=== PATIENT | female | born 1945 | race Caucasian/White ===

== ENCOUNTER 2018-01-12 18:23 | Emergency (ER) | payer MEDICARE ==
[2018-01-12 18:37] VITALS: O2SAT 96
--- NOTE | 2018-01-12 19:38 | ERPHSYRPT ---
- History of Present Illness Time Seen by Provider: 01/12/18 19:34 Source: patient Exam Limitations: no limitations Patient Subjective Stated Complaint: pt reports tripping and falling this morning-reports pain to right wrist-reports pain and swelling-denies loc-denies hitting head Triage Nursing Assessment: pt pink warm and [id number] noted to right wrist with radial pulse present and regular-cap refill 3 seconds in pointer finger-superficial abrasions noted to left elbow with no bleeding Physician History: pt reports tripping and falling this morning-reports pain to right wrist- reports pain and swelling, No loss of consciousness Occurred: this morning Method of Injury: fell Quality: intermittent Extremities Pain Location: wrist: right, hand: right Modifying Factors: Improves With: nothing Associated Symptoms: none Body Map: 1 - pain, tenderness Allergies/Adverse Reactions: No Known Drug Allergies Allergy (Verified 01/12/18 18:37) Home Medications: Dexlansoprazole [Dexilant] 60 mg PO DAILY 05/20/12 [History] Albuterol Sulfate [Proair Respiclick] 90 mcg IH DAILY 03/20/15 [History] Amlodipine Besylate 5 mg [Norvasc 5 mg] 5 mg PO DAILY 03/20/15 [History] Famotidine [Pepcid] 10 mg PO DAILY 03/20/15 [History] Dulaglutide [Trulicity] 0.75 mg PO DAILY 01/12/18 [History] Metoprolol Succinate [Metoprolol Succinate] 50 mg PO DAILY 01/12/18 [History] Potassium Chloride [Potassium Chloride] 10 meq PO DAILY 01/12/18 [History] Hx Tetanus, Diphtheria Vaccination/Date Given: Yes Hx Influenza Vaccination/Date Given: Yes Hx Pneumococcal Vaccination/Date Given: No Immunizations Up to Date: Yes - Review of Systems Constitutional: No Symptoms Eyes: No Symptoms Ears, Nose, & Throat: No Symptoms Respiratory: No Symptoms Cardiac: No Symptoms Abdominal/Gastrointestinal: No Symptoms Musculoskeletal: Fall, Injury (right hand), Joint Pain, Joint Swelling - Past Medical History Pertinent Past Medical History: Yes Neurological History: No Pertinent History ENT History: No Pertinent History Cardiac History: High Cholesterol, Hypertension Respiratory History: COPD Endocrine Medical History: Diabetes Type II Musculoskeletal History: Rheumatoid Arthritis GI Medical History: Diverticulitis, GERD, Hernia, Irritable Bowel History: No Pertinent History Psycho-Social History: Anxiety, Depression Female Reproductive Disorders: No Pertinent History - Past Surgical History Past Surgical History: Yes Neuro Surgical History: No Pertinent History Cardiac: No Pertinent History Respiratory: No Pertinent History Gastrointestinal: Cholecystectomy Genitourinary: No Pertinent History Musculoskeletal: No Pertinent History Female Surgical History: No Pertinent History, Tubal Ligation Other Surgical History: TONSIL. EGD 5 YEARS AGO. COLONOSCOPY - Social History Smoking Status: Former smoker How long have you smoked: 33 YEARS Exposure to second hand smoke: No Alcohol Use: None Drug Use: none Patient Lives Alone: No Significant Family History: no pertinent family hx - Female History Hx Now: No - Nursing Vital Signs Nursing Vital Signs: Initial Vital Signs Temperature 98.6 F 01/12/18 18:32 Pulse Rate 82 01/12/18 18:32 Respiratory Rate 18 01/12/18 18:32 Blood Pressure 150/100 01/12/18 18:32 O2 Sat by Pulse Oximetry 96 01/12/18 18:32 Pain Scale Pain Intensity 6 - Physical Exam General Appearance: no apparent distress Wrist Exam: normal ROM, bone tenderness, pain, soft tissue tenderness, No deformity Hand Exam: soft tissue tenderness SpO2: 96 Oxygen Delivery: Room Air - Radiology Exams Hand X-ray Interpretation: Reviewed by me, Negative, No Fracture, No Subluxation Ordered Tests: Active Orders 24 hr Category Date Time Status HAND (MINIMUM 3 VIEWS) Stat Exams 01/12/18 18:47 Taken WRIST (MIN 3 VIEWS) Stat Exams 01/12/18 18:47 Taken - Progress Progress: improved, pain not gone completely Counseled pt/family regarding: diagnosis, need for follow-up, rad results - Departure Time of Disposition: 19:37 Departure Disposition: Home Clinical Impression: Sprain of hand, right Qualifiers: Encounter type: initial encounter Qualified Code(s): S63.91XA - Sprain of unspecified part of right wrist and hand, initial encounter Condition: Stable Critical Care Time: No Referrals: MISBAH AUSTIN [Primary Care Provider] - Instructions: Preventing Falls, Wrist Sprain (DC) Additional Instructions: SPRAINS/STRAINS/CONTUSIONS 1. Rest the affected area as much as possible for the next few days. 2. Apply ice to the affected area for 20-30 minutes at a time, several times a day. 3. If you receive an elastic wrap, wear it only while awake for comfort and support. Re-wrap the elastic wrap if it feels too tight or too loose. 4. If swelling is present, elevate the affected part above the level of the heart for at least 2 to 3 days. 5. Use splints, slings, or crutches as instructed. 6. Watch for severe swelling, coldness, numbness, and discoloration of the fingers and toes. See your family physician or return to the emergency department if any of these are noted. JACKIE PEREYRA was seen on 01/12/18 n the Emergency Room. At that time you were treated for an emergent condition, during your visit Laboratory, Radiology and/ or other procedures may have been ordered. It is very important that you follow- up with your Primary Care Physician MISBAH AUSTIN within the next 24-48 hours to review your Emergency Room visit and the final results of testing that was ordered. Some test results such as Urine Cultures, Blood Cultures, and other cultures if ordered will not be finalized for 24-48 hours. If you do not have a Primary Care Provider please call the medical records department at [phone] to obtain a copy of your results or you may sign into our patient portal to obtain these results by visiting us @ [email or web address] and completing the following steps: 1. Click on the Patient Portal link 2. Click the Patient Self Enrollment Link to complete the enrollment form and entering your 3. Once the enrollment form is completed you will receive an email with a temporary ID and password at the email address you provided. 4. Next choose a user name and password. Your user name must be at least 4 characters long and your password must be at least 4 characters long. 5. Choose a security question from the list and provide your answer to the question. If you already have signed into the Health Portal you may access your Health Care Information 26/03 by the following steps: 1. Login to our website @ [email or web address] 2. Enter your original user name and password. FAQS The [facility] Portal is an online tool that contains your Lab Results, Radiology Reports, Visit History, Discharge Instructions and Health Summary Lab and Radiology Results will not be available for 72 hours on the portal. The Portal is a secure site, passwords are encryted and URLs are re-written so they cannot be copied and pasted. You and authorized family members are the only ones who can access your Portal. Also there is a timeout feature that protects your information if you leave the Portal page open. If you have technical difficulty please use the Contact Us link on the page this will allow you to submit any questions you have regarding the Portal or you may contact the Medical Record Department at [phone].
[2018-01-12 19:40] VITALS: BP 151/102; PULSE 80
--- NOTE | 2018-01-13 07:40 | XRAY ---
Indication: Pain following fall. Comparison: March 20, 2015. 3 views of the right wrist unchanged again demonstrating mild osteopenia and radiocarpal joint space narrowing. No new/acute findings.
--- NOTE | 2018-01-13 07:44 | XRAY ---
Indication: Pain following fall. Comparison: None 3 views of the right hand demonstrates mild osteopenia, mild degenerative changes of all IP joints, and radiocarpal joint space narrowing. No other bony, articular, or soft tissue abnormalities.
== END 2018-01-12 19:45 | disposition home or self-care (01) ==
LOC: ED 18:23
DX: S63.91XA Sprain of unspecified part of right wrist and hand, initial encounter (principal); M25.531 Pain in right wrist; W01.0XXA Fall on same level from slipping, tripping and stumbling without subsequent striking against object, initial encounter; Z79.899 Other long term (current) drug therapy
CPT/HCPCS: 73110; 73130; 99283; L3908

== ENCOUNTER 2018-03-01 05:56 | Day surgery (SDC) | payer MEDICARE ==
[2018-03-01] MEDS ORDERED: DIPRIVAN 200 MG/20 ML IV ONE (05:57)
[2018-03-01] MEDS ORDERED: Lactated Ringers 1,000 ML IV SCH (06:00)
--- NOTE | 2018-03-01 08:14 | OP ---
SURGERY DATE/TIME: 03/01/2018 0747 PREOPERATIVE DIAGNOSIS: Chronic nausea. POSTOPERATIVE DIAGNOSES: 1) Delayed gastric emptying. 2) Gastric polyps. PROCEDURE: Esophagogastroduodenoscopy. SURGEON: Dr. Salcido. ANESTHESIA: Medications were given by the anesthesia department. BRIEF HISTORY: The patient is a 72 year old white female who has been reporting chronic nausea. She is known to be diabetic and we were concerned for delayed gastric emptying. The patient was appraised of the risks of the procedure including the risk of perforation, phlebitis, untoward reaction to medication, bleeding and missed lesions. The patient verbalized her understanding and desired to have the procedure performed. DESCRIPTION OF PROCEDURE: The patient was given the medications by the anesthesia department. She had continuous pulse oximetry, ECG monitoring, intermittent blood pressure monitoring and tidal CO2 monitoring during the examination. She was placed in the left lateral decubitus position. A bite block was placed and the flexible Olympus gastroscope was used to intubate the oropharynx. A view of the larynx was obtained and was normal. The scope was easily introduced in the esophagus which was normal throughout its length. The stomach was entered where normal gastric rugal folds were seen. We noted that there was indeed delayed gastric emptying with a fair amount of food stuff still up in the stomach. There was also noted to be several gastric gland polyps including one broad based and fairly large one. The scope was passed along the greater curvature of the stomach to the antrum. The pylorus was encountered and intubated. The duodenum inspected and found to be normal. The scope is withdrawn towards the stomach. Again, a retroflex view was obtained of the lesser curvature, fundus and cardia regions of the stomach and again was noted a fairly large polyp. We inspected but did not biopsy this as it appeared to be friable. We were concerned for stirring up some bleeding that would be difficult to control. We therefore removed the scope from the patient who tolerated the procedure well and was sent back to the hospital ca in good condition. The plan is for the patient to have surgical consultation with possible removal and biopsy of the polyps in the stomach where it could be controlled by a surgeon if the patient should have significant bleeding.
[2018-03-01 08:52] VITALS: BP 152/78; PULSE 72; O2SAT 93
== END 2018-03-01 09:04 | disposition home or self-care (01) ==
LOC: SDC 05:56
PROVIDERS: ATTEND Family Medicine
DX: K30 Functional dyspepsia (principal); K31.7 Polyp of stomach and duodenum; E11.9 Type 2 diabetes mellitus without complications; I10 Essential (primary) hypertension; E78.5 Hyperlipidemia, unspecified
CPT/HCPCS: 82962; 99100; J2704

== ENCOUNTER 2018-04-08 08:04 | Day surgery (SDC) | payer MEDICARE ==
[~2018-04-08 08:04] MED LIST: Lactated Ringers 1,000 ML IV SCH
[2018-04-08] MEDS ORDERED: DIPRIVAN 200 MG/20 ML IV ONE (08:05)
[2018-04-08] MEDS ORDERED: Versed 2 MG/2 ML Injection IV ONE (08:05)
--- NOTE | 2018-04-08 08:33 | HP ---
DATE OF SURGERY: 04/08/2018 HISTORY OF PRESENT ILLNESS: The patient is a 72 year-old recently underwent endoscopy by Dr. Salcido and noted to have a large gastric polyp. He was referred for surgical evaluation. PAST MEDICAL HISTORY: Diabetes neuropathy, arthritis, hypertension, acid reflux. PAST SURGICAL HISTORY: Cholecystectomy, appendectomy, tubal ligation, upper endoscopy. MEDICATIONS: Actemra, amlodipine, Dexilant, potassium chloride, gabapentin, Januvia, metoclopramide, Zofran, rosuvastatin, vitamin D, Toprol, triamterene, Trulicity. ALLERGIES: NKDA. FAMILY HISTORY: Heart disease. SOCIAL HISTORY: No alcohol abuse. REVIEW OF SYSTEMS: Twelve systems reviewed per admission assessment. No chest pain or palpitations other systems negative or noncontributory as above and per preadmission questionnaire. PHYSICAL EXAMINATION: GENERAL: No acute distress. HEENT: Sclerae nonicteric. NECK: No JVD. CHEST: Equal excursion, nonlabored breathing. CVS: Regular rate and rhythm. ABDOMEN: Soft. No peritoneal signs. EXTREMITIES: No significant edema. NEURO: Alert, oriented, moving extremities symmetrically. No gross motor deficits noted. IMPRESSION: Large polyp on recent endoscopy by Dr. Salcido. I feel she will benefit from follow up upper endoscopy, possible polypectomy. Risks and benefits explained in detail including but not limited to bleeding or infection, risk of aspiration, risk of inability to remove the polyp possibly requiring biopsy and possible later open or laparoscopic surgical procedure, general of anesthesia, deep venous thrombosis, pulmonary embolism, pneumonia, perioperative risk of aches, pains, bloating particularly given history of diabetes and possible gastroparesis. Risk of anesthesia or sedation. Will proceed with EGD possible biopsy, possible polypectomy when OR time available.
[2018-04-08] MEDS ORDERED: Lactated Ringers 1,000 ML IV ONE (08:35)
[2018-04-08 11:38] VITALS: PULSE 68
[2018-04-08 11:52] VITALS: BP 139/80; O2SAT 93
--- NOTE | 2018-04-09 07:54 | OP ---
SURGERY DATE/TIME: 04/08/2018 1038 PREOPERATIVE DIAGNOSIS: History of large gastric polyp in need of evaluation. POSTOPERATIVE DIAGNOSES: 1) History of large gastric polyp in need of evaluation. 2) Gastritis. PROCEDURES: 1) EGD with hot snare polypectomy large gastric polyp x2. 2) Hemoclip placement for hemostasis at largest polyp site. 3) Cold biopsy of the antrum to evaluate for Helicobacter pylori. SURGEON: Dr. Eddie Hansen. ANESTHESIA: MAC. ESTIMATED BLOOD LOSS: Minimal. INDICATIONS: As noted above. Risks and benefits explained in detail and not limited to and consent obtained. DESCRIPTION OF PROCEDURE AND FINDINGS: The patient is taken to the operating room. MAC anesthesia introduced. After official time out and no disagreement with planned procedure, a bite block positioned. Video gastroscope easily passed down the esophagus through the patent pylorus to the junction of the second and third portion of the duodenum. On withdrawal of the scope she had some gastritis. She had not been previously biopsied for Helicobacter pylori so cold biopsy of the antrum to evaluate for Helicobacter pylori. Good hemostasis noted. On retroflex there is a large polyp with a little bit of a stalk on the proximal stomach. It was felt this was the one in question confirmed by the OR staff from Dr. Salcido's previous procedure. It was able to be snared with hot snare, brief bursts of cautery. There was some ooze at the base. It was felt the most expeditious way to control this is with a Hemoclip. Initial Hemoclip was not fired correctly so it was grasped and retrieved and passed off. A new Hemoclip was used and at this time fired at the base. The staff was able to fire it correctly this time with good application. It had good hemostasis. There was another large polyp nearby that was also removed with hot snare polypectomy with brief bursts of cautery. It appeared to have adequate hemostasis. It was able to be suctioned free. The largest gastric polyp was able to be suctioned with the tip of the scope and carefully pulled up to the esophagus and able to be passed off. The scope was placed back down in the area. Good hemostasis was noted in both with antrum biopsies as well as the polypectomy site x2. The patient had other very small benign appearing fundal gland polyps also in the stomach but were felt not to need intervention at this time. Good hemostasis is noted. The two larger polypectomy sites the Hemoclip was in position. It was felt that no further intervention was necessary. The scope was withdrawn. Findings discussed with the family out in the waiting area.
== END 2018-04-08 11:55 | disposition home or self-care (01) ==
LOC: SDC 08:04
PROVIDERS: ATTEND Surgery
DX: K31.7 Polyp of stomach and duodenum (principal); K29.70 Gastritis, unspecified, without bleeding; I10 Essential (primary) hypertension; K21.9 Gastro-esophageal reflux disease without esophagitis; E11.40 Type 2 diabetes mellitus with diabetic neuropathy, unspecified
CPT/HCPCS: 88305; 94250; 99100; J2250; J2704

== ENCOUNTER 2018-05-22 13:09 | Observation (INO) | payer MEDICARE ==
[2018-05-22] MEDS ORDERED: Zofran 4 MG/2 ML VIAL IV ONE (13:36)
[2018-05-22] MEDS ORDERED: Sodium Chloride 0.9% 1000 ML 1,000 ML IV SCH (13:45)
[2018-05-22] MEDS ORDERED: Sodium Chloride 0.9% 500 ML 500 ML IV ONE ×3 (13:46→17:49)
[2018-05-22 13:53] LABS: BASOPHIL % 0.7 % (0.0-0.4); Basophil (Absolute #) 0.03 (0-0.4); Eosinophil % 0.7 % (0.00-5.0); Eosinophil (Absolute #) 0.03 (0-0.5); Granulocyte Absolute (ANC) 3.55 (1.4-6.9); Granulocytes % 78.8 % (36.0-66.0); Hemoglobin 16.1 gm/dl (12.0-16.0); Lymphocyte (Absolute #) 0.59 (1.0-4.6); Lymphocytes % 13.1 % (24.0-44.0); Mean Cell Volume 87.6 fl (78-100); Monocytes % 6.7 % (0.0-12.0); Platelet Count 139 K/mm3 (150-450); Red Blood Count 5.25 M/mm3 (4.1-5.4); Red Cell Distribution Width 13.2 % (11.5-14.0); White Blood Count 4.5 K/mm3 (4.0-10.5)
[2018-05-22] MEDS ORDERED: Zofran 4 MG/2 ML VIAL ONE (13:59)
[2018-05-22 14:09] LABS: Mean Corpuscular Hemoglobin 30.6 pg (26-32)
[2018-05-22 14:16] LABS: ALBUMIN 4.3 g/dL (3.5-5.0); ANION GAP 23.2 MEQ/L (5-15); BILIRUBIN,TOTAL 1.2 mg/dL (0.2-1.3); Calcium 9.4 mg/dL (8.4-10.2); Creatinine 1 1.4 mg/dL (0.52-1.04); Potassium 3.8 mmol/L (3.5-5.1); Total Protein 6.9 g/dL (6.3-8.2)
--- NOTE | 2018-05-22 14:17 | XRAY ---
Indication: Fever and cough. Comparison: April 29, 2014. Portable chest again demonstrates normal heart and lungs with new left-sided Port-A-Cath. Bony thorax intact again with mild osteopenia and degenerative changes. Impression: Nonacute chest with chronic features.
--- NOTE | 2018-05-22 14:25 | ERPHSYRPT ---
- History of Present Illness Time Seen by Provider: 05/22/18 13:16 Source: patient, EMS Exam Limitations: no limitations Patient Subjective Stated Complaint: pt here for nausea that is chronic, weakness,shakiness, since starting meds. pt states her bs have been running high , fbs 348 per ems Triage Nursing Assessment: pt alert, resp easy, skin w/d/p. abd soft Physician History: patient recently saw LMD and found to have a UTI and high BS with Glu in urine; she was started on Insulin and Reglan; took reglan last pm and insulin today; didn't start on ATBs because is due for an infusion tomorrow for arthritis and will not take ATBs because will interfere with infusion; fever time 3 days; slight dry cough; no CP or SOB; no travel or exposures; has freq and urgency; Nausea but no emesis; not feeling well after insulin so came in; BS finger high at 365; thirsty Timing/Duration: today, gradual onset Severity: moderate Modifying Factors: Improves With: medication (new) Associated Symptoms: nausea, cough (dry), chills, fever (to 100 at home) Allergies/Adverse Reactions: No Known Drug Allergies Allergy (Verified 05/22/18 13:19) Home Medications: Dexlansoprazole [Dexilant] 60 mg PO DAILY 05/20/12 [History] Albuterol Sulfate [Proair Respiclick] 90 mcg IH DAILY 03/20/15 [History] Amlodipine Besylate 5 mg [Norvasc 5 mg] 5 mg PO DAILY 03/20/15 [History] Dulaglutide [Trulicity] 1.5 mg PO WEEKLY 01/12/18 [History] Metoprolol Succinate 50 mg PO DAILY 01/12/18 [History] Potassium Chloride 10 meq PO DAILY 01/12/18 [History] Cholecalciferol (Vitamin D3) [Vitamin D] 5,000 unit PO DAILY 02/28/18 [ History] Gabapentin [Neurontin] 300 mg PO TID 02/28/18 [History] Ondansetron ODT 4 MG [Zofran Odt 4 mg] 4 mg PO Q6H PRN PRN 02/28/18 [ History] Rosuvastatin Calcium 10 mg PO DAILY 02/28/18 [History] Sitagliptin Phosphate [Januvia] 25 mg PO DAILY 02/28/18 [History] Tocilizumab 200 mg/10 ml [Actemra] 200 mg IV CLARIFY 02/28/18 [History] Triamterene/Hydrochlorothiazid [Triamterene-Hctz 37.5-25 mg Cp] 1 each PO DAILY 02/28/18 [History] Metoclopramide HCl 10 mg [Reglan 10 MG] 1 - 2 tab PO DAILY 04/01/18 [ History] Hx Tetanus, Diphtheria Vaccination/Date Given: No Hx Influenza Vaccination/Date Given: No Hx Pneumococcal Vaccination/Date Given: Yes Immunizations Up to Date: Yes - Review of Systems Constitutional: Fever, Chills, Malaise Eyes: No Symptoms Ears, Nose, & Throat: No Symptoms Respiratory: Cough (dry), No Cyanosis, No Dyspnea, No Wheezing Cardiac: No Chest Pain, No Edema, No Palpitations, No Syncope Abdominal/Gastrointestinal: Nausea, No Abdominal Pain, No Vomiting, No Diarrhea , No Constipation Genitourinary Symptoms: Dysuria, Frequency, Hematuria, Urgency, No Incontinence Musculoskeletal: No Symptoms Skin: No Symptoms Neurological: No Symptoms Psychological: No Symptoms Endocrine: Polyuria, Polydipsia Hematologic/Lymphatic: No Symptoms Immunological/Allergic: No Symptoms - Past Medical History Pertinent Past Medical History: Yes Neurological History: No Pertinent History ENT History: No Pertinent History Cardiac History: High Cholesterol, Hypertension Respiratory History: COPD Endocrine Medical History: Diabetes Type II Musculoskeletal History: Rheumatoid Arthritis, Other GI Medical History: GERD, Polyps, Other History: No Pertinent History Psycho-Social History: No Pertinent History Female Reproductive Disorders: No Pertinent History Other Medical History: Hx of nausea. mild COPD. neuropathy. gastric polyp - Past Surgical History Past Surgical History: Yes Neuro Surgical History: No Pertinent History Cardiac: No Pertinent History Respiratory: No Pertinent History Gastrointestinal: Appendectomy, Cholecystectomy Genitourinary: No Pertinent History Musculoskeletal: No Pertinent History Female Surgical History: Tubal Ligation Other Surgical History: TONSIL. EGD 5 YEARS AGO. COLONOSCOPY - Social History Smoking Status: Former smoker How long have you smoked: 33 YEARS Exposure to second hand smoke: No Alcohol Use: None Drug Use: none Patient Lives Alone: No Significant Family History: no pertinent family hx - Female History Hx Last Menstrual Period: post Hx Now: No - Nursing Vital Signs Nursing Vital Signs: Initial Vital Signs Temperature 99.3 F 05/22/18 13:10 Pulse Rate 110 H 05/22/18 13:10 Respiratory Rate 18 05/22/18 13:10 Blood Pressure 108/82 05/22/18 13:10 O2 Sat by Pulse Oximetry 99 05/22/18 13:10 Pain Scale Pain Intensity 6 - Physical Exam General Appearance: mild distress, alert, obese Eye Exam: PERRL/EOMI, eyes nml inspection, No photophobia Ears, Nose, Throat Exam: normal ENT inspection, TMs normal, pharynx normal, dry mucous membranes, other (no ketosis on breath) Neck Exam: normal inspection, non-tender, supple, No meningismus, No JVD Respiratory Exam: normal breath sounds, lungs clear, airway intact, No chest tenderness, No respiratory distress, No crackles/rales, No rhonchi, No wheezing Cardiovascular Exam: regular rate/rhythm, normal heart sounds, normal peripheral pulses, tachycardia (110), capillary refill <2 sec, No murmur Gastrointestinal/Abdomen Exam: soft, normal bowel sounds, No tenderness, No guarding, No rebound, No organomegaly Pelvic Exam: deferred Rectal Exam: deferred Back Exam: normal inspection, No CVA tenderness, No rash Extremity Exam: normal inspection, normal range of motion, No jeniffer's sign, No pedal edema Neurologic Exam: alert, oriented x 3, cooperative, lead electrical engineer II-XII nml as tested, normal mood/affect, sensation nml Skin Exam: normal color, warm, dry, No rash SpO2 Interpretation: normal SpO2: 98 Oxygen Delivery: Room Air - Course Nursing assessment & vital signs reviewed: Yes - Radiology Exams Chest X-ray Interpretation: Reviewed by me, Teleradiologist Report, Negative, No Pneumonia, No Pneumothorax, Nml Heart Size, No Infiltrates Ordered Tests: Active Orders 24 hr Category Date Time Status IV Insertion STAT Care 05/22/18 13:36 Active CHEST 1 VIEW (PORTABLE) Stat Exams 05/22/18 13:51 Completed BLOOD CULTURE Stat Lab 05/22/18 13:20 Ordered CBC W DIFF Stat Lab 05/22/18 13:20 Completed CMP Stat Lab 05/22/18 13:20 Completed CULTURE,URINE Stat Lab 05/22/18 14:20 Received Lactic Acid Stat Lab 05/22/18 14:40 Results UA W/ MICROSCOPIC Stat Lab 05/22/18 14:20 Completed Transfer Order Routine Transfer 05/22/18 Ordered Medication Summary Generic Name Dose Route Start Last Admin Trade Name Russell PRN Reason Stop Dose Admin Sodium Chloride 1,000 mls @ 100 mls/hr 05/22/18 13:45 05/22/18 15:09 Sodium Chloride 0.9% 1000 Ml IV 06/21/18 13:44 100 mls/hr .Q10H GORAN Administration Discontinued Medications Generic Name Dose Route Start Last Admin Trade Name Russell PRN Reason Stop Dose Admin Sodium Chloride 500 mls @ 500 mls/hr 05/22/18 13:46 05/22/18 14:05 Sodium Chloride 0.9% 500 Ml IV 05/22/18 14:45 500 mls/hr .Q1H ONE Administration Sodium Chloride Confirm 05/22/18 13:59 Sodium Chloride 0.9% 500 Ml Administered 05/22/18 14:00 Dose 500 mls @ ud IV .STK-MED ONE Ceftriaxone Sodium/Dextrose 1 g in 50 mls @ 100 mls/hr 05/22/18 15:39 16:15 Rocephin 1 Gm-D5w 50 Ml Bag IV 05/22/18 16:08 100 mls/hr STAT STA 100 mls/hr Administration Ceftriaxone Sodium/Dextrose Confirm 05/22/18 16:10 Rocephin 1 Gm-D5w 50 Ml Bag Administered 05/22/18 16:11 Dose 1 g in 50 mls @ ud IV .STK-MED ONE Ondansetron HCl 4 mg 05/22/18 13:36 05/22/18 14:05 Zofran 4 Mg/2 Ml Vial IV 05/22/18 13:37 4 mg STAT ONE Administration Ondansetron HCl Confirm 05/22/18 13:59 Zofran 4 Mg/2 Ml Vial Administered 05/22/18 14:00 Dose 4 mg .ROUTE .STK-MED ONE Lab/Rad Data: Laboratory Result Diagrams 05/22/18 13:20 05/22/18 13:20 Laboratory Results 05/22/18 05/22/18 05/22/18 Range/Units 14:40 14:20 13:20 WBC (4.0-10.5) K/mm3 RBC (4.1-5.4) M/mm3 Hgb (12.0-16.0) gm/dl Hct (35-47) % MCV (78-100) fl MCH (26-32) pg MCHC (32-36) g/dl RDW (11.5-14.0) % Plt Count (150-450) K/mm3 MPV (6-9.5) fl Gran % (36.0-66.0) % Eos # (Auto) (0-0.5) Absolute Lymphs (auto) (1.0-4.6) Absolute Monos (auto) (0.0-1.3) Lymphocytes % (24.0-44.0) % Monocytes % (0.0-12.0) % Eosinophils % (0.00-5.0) % Basophils % (0.0-0.4) % Absolute Granulocytes (1.4-6.9) Basophils # (0-0.4) Sodium 136 L (137-145) mmol/L Potassium 3.8 (3.5-5.1) mmol/L Chloride 94 L (98-107) mmol/L Carbon Dioxide 22 (22-30) mmol/L Anion Gap 23.2 H (5-15) MEQ/L BUN 22 H (7-17) mg/dL Creatinine 1.40 H (0.52-1.04) mg/dL Estimated GFR 39.4 ML/MIN Glucose 438 H (74-106) mg/dL Lactic Acid 2.8 H (0.4-2.0) Calcium 9.4 (8.4-10.2) mg/dL Total Bilirubin 1.20 (0.2-1.3) mg/dL AST 47 H (14-36) U/L ALT 37 H (0-35) U/L Alkaline Phosphatase 78 (38-126) U/L Serum Total Protein 6.9 (6.3-8.2) g/dL Albumin 4.3 (3.5-5.0) g/dL Ur Collection Type CATH Urine Color YELLOW (YELLOW) Urine Appearance HAZY (CLEAR) Urine pH 5.0 (5-6) Ur Specific Matthews 1.010 (1.005-1.025) Urine Protein 30 (Negative) Urine Ketones NEGATIVE (NEGATIVE) Urine Blood 50 (0-5) Andrea/ul Urine Nitrite NEGATIVE (NEGATIVE) Urine Bilirubin NEGATIVE (NEGATIVE) Urine Urobilinogen NORMAL (0-1) mg/dL Ur Leukocyte Esterase 1+ (NEGATIVE) Urine Microscopic RBC 0-2 (0-2) /HPF Urine Microscopic WBC 25-50 (0-5) /HPF Ur Epithelial Cells FEW (FEW) /HPF Urine Bacteria MODERATE (NEGATIVE) /HPF Urine Culture Reflexed YES (NO) Urine Glucose 1000 (NEGATIVE) mg/dL 05/22/18 Range/Units 13:20 WBC 4.5 (4.0-10.5) K/mm3 RBC 5.25 (4.1-5.4) M/mm3 Hgb 16.1 H (12.0-16.0) gm/dl Hct 46.0 (35-47) % MCV 87.6 (78-100) fl MCH 30.6 (26-32) pg MCHC 35.0 (32-36) g/dl RDW 13.2 (11.5-14.0) % Plt Count 139 L (150-450) K/mm3 MPV 11.0 H (6-9.5) fl Gran % 78.8 H (36.0-66.0) % Eos # (Auto) 0.03 (0-0.5) Absolute Lymphs (auto) 0.59 L (1.0-4.6) Absolute Monos (auto) 0.30 (0.0-1.3) Lymphocytes % 13.1 L (24.0-44.0) % Monocytes % 6.7 (0.0-12.0) % Eosinophils % 0.7 (0.00-5.0) % Basophils % 0.7 (0.0-0.4) % Absolute Granulocytes 3.55 (1.4-6.9) Basophils # 0.03 (0-0.4) Sodium (137-145) mmol/L Potassium (3.5-5.1) mmol/L Chloride (98-107) mmol/L Carbon Dioxide (22-30) mmol/L Anion Gap (5-15) MEQ/L BUN (7-17) mg/dL Creatinine (0.52-1.04) mg/dL Estimated GFR ML/MIN Glucose (74-106) mg/dL Lactic Acid (0.4-2.0) Calcium (8.4-10.2) mg/dL Total Bilirubin (0.2-1.3) mg/dL AST (14-36) U/L ALT (0-35) U/L Alkaline Phosphatase (38-126) U/L Serum Total Protein (6.3-8.2) g/dL Albumin (3.5-5.0) g/dL Ur Collection Type Urine Color (YELLOW) Urine Appearance (CLEAR) Urine pH (5-6) Ur Specific Matthews (1.005-1.025) Urine Protein (Negative) Urine Ketones (NEGATIVE) Urine Blood (0-5) Andrea/ul Urine Nitrite (NEGATIVE) Urine Bilirubin (NEGATIVE) Urine Urobilinogen (0-1) mg/dL Ur Leukocyte Esterase (NEGATIVE) Urine Microscopic RBC (0-2) /HPF Urine Microscopic WBC (0-5) /HPF Ur Epithelial Cells (FEW) /HPF Urine Bacteria (NEGATIVE) /HPF Urine Culture Reflexed (NO) Urine Glucose (NEGATIVE) mg/dL reviewed reviewed - Progress Progress: improved (after meds and iv fluids), re-examined (after meds and labs) Progress Note: 05/22/18 14:26 will get labs; give meds and IV fluids and recheck; discussed issues with not taking ATBs timely for infections with risk and benefits 05/22/18 14:28 hi BS = 438; BUN= 22 cr 1.40; anion gap 23; Na low 136; Cl = 94 05/22/18 14:55 rechecked; at bedside; lactic acid elevated at 2.8; urine pending; will continue fluids; still refusing ATBS because of pending infusion 05/22/18 15:40 UA grossly infected; elevated lactic acid; gluoce out of control discussed with patient and then consulted dr Thakur and will admit on ATBS and Fluids 05/22/18 16:11 Dr Thakur consulted and will admit; She came to the ER to see the patient Discussed with : Masood (consulted for Dr Salcido and will admit) Will see patient in: hospital (observation) Counseled pt/family regarding: lab results, diagnosis, need for follow-up, rad results - Departure Time of Disposition: 16:11 Departure Disposition: Observation Clinical Impression: Sepsis, UTI (urinary tract infection), elevated lactate 2.8, insulin dependent diabetic poor control , BS = 438 Condition: Serious Critical Care Time: No Referrals: MISBAH SALCIDO [Primary Care Provider] - GORGE THAKUR [ACTIVE STAFF] -
[2018-05-22 14:48] LABS: Lactic Acid 2.8 (0.4-2.0)
[2018-05-22 15:15] LABS: Appearance HAZY (CLEAR)
[2018-05-22 15:16] LABS: Bilirubin NEGATIVE (NEGATIVE); Blood 50 Ery/ul (0-5); Glucose 1000 mg/dL (NEGATIVE); Ketones NEGATIVE (NEGATIVE); Leukocyte Esterase 1+ (NEGATIVE); Nitrite NEGATIVE (NEGATIVE); Protein,Urine Dip 30 (Negative); Urobilinogen NORMAL mg/dL (0-1)
[2018-05-22 15:17] LABS: Bacteria MODERATE /HPF (NEGATIVE); Epithelial Cells FEW /HPF (FEW); RBC 0-2 /HPF (0-2); WBC 25-50 /HPF (0-5)
[2018-05-22] MEDS ORDERED: ROCEPHIN 1 Gm-D5w 50 ml Bag** 1 G/50 ML IVPB IV STA (15:39)
[2018-05-22] MEDS ORDERED: ROCEPHIN 1 Gm-D5w 50 ml Bag** 1 G/50 ML IVPB IV ONE (16:10)
[2018-05-22 16:54] LABS: Slide Review 1 YES
[2018-05-22] MEDS ORDERED: TYLENOL 325 MG PO PRN (17:28)
[2018-05-22] MEDS ORDERED: Lantus Insulin SQ SCH (17:30)
[2018-05-22] MEDS: NovoLOG Insulin SQ PRN ×2 (17:48→22:02)
[2018-05-22] MEDS: Sodium Chloride 0.9% 1000 ML 1,000 ML IV SCH ×2 (17:50→19:30)
[2018-05-22] MEDS ORDERED: Zofran 4 MG/2 ML VIAL IV PRN (19:53)
[2018-05-22] MEDS ORDERED: NEURONTIN 300 MG PO SCH (22:00)
[2018-05-23] MEDS: Sodium Chloride 0.9% 1000 ML 1,000 ML IV SCH (03:31)
[2018-05-23 05:33] LABS: BASOPHIL % 0.5 % (0.0-0.4); Basophil (Absolute #) 0.03 (0-0.4); Eosinophil % 0.9 % (0.00-5.0); Eosinophil (Absolute #) 0.05 (0-0.5); Granulocyte Absolute (ANC) 3.85 (1.4-6.9); Granulocytes % 67.7 % (36.0-66.0); Hemoglobin 13.5 gm/dl (12.0-16.0); Lymphocytes % 19.3 % (24.0-44.0); Mean Cell Volume 88.4 fl (78-100); Mean Corpuscular Hemoglobin 30.6 pg (26-32); Mean Corpuscular Hgb Concent. 34.6 g/dl (32-36); Mean Platelet Volume 10.9 fl (6-9.5); Monocyte (Absolute #) 0.66 (0.0-1.3); Monocytes % 11.6 % (0.0-12.0); Platelet Count 110 K/mm3 (150-450); Red Blood Count 4.41 M/mm3 (4.1-5.4); Red Cell Distribution Width 13.3 % (11.5-14.0); White Blood Count 5.7 K/mm3 (4.0-10.5)
[2018-05-23 05:52] LABS: ALBUMIN 3.1 g/dL (3.5-5.0); ANION GAP 12.6 MEQ/L (5-15); BILIRUBIN,TOTAL 0.6 mg/dL (0.2-1.3); Calcium 8.4 mg/dL (8.4-10.2); Creatinine 1 1.05 mg/dL (0.52-1.04); Total Protein 5.5 g/dL (6.3-8.2)
[2018-05-23] MEDS ORDERED: Klor Con 10 MEQ PO ONE (07:00)
[2018-05-23 08:19] VITALS: BP 112/55
[2018-05-23] MEDS: NovoLOG Insulin SQ PRN (08:20)
[2018-05-23 08:54] VITALS: PULSE 87; O2SAT 94
--- NOTE | 2018-05-23 09:15 | HP ---
HISTORY OF PRESENT ILLNESS: This is a 72 year-old patient of Dr. Salcido's who reports that approximately two days ago she started not feeling well having some heartburn and decreased appetite. She was seen by nurse practitioner, Lis Rapp, yesterday and diagnosed with urinary tract infection. She was supposed to start Macrobid but states she did not start it because she was planning on getting an infusion from her nurse chemical dependency and she could not get the infusion if she was on antibiotic and so she had not started this yet. A urine culture that Lis had ordered was already growing gram-negative bacteria. The patient reports that she was also started on Basaglar 5 units daily and took 5 units and had not been on insulin before. Her reports she has been on Trulicity and Januvia in the past. Her last A1C was back in January and was 9.8. This morning the patient has fever, shaking, chills and her said once they decided to go to the emergency room she was in the bathroom and talking silly, not making sense and then fell but just slid down and did not hit anything they say. He had to call the ambulance to come because he could not get her back up. They report since being in the emergency room she is acting much better and is no longer talking silly. She states she feels better as well. REVIEW OF SYSTEMS: She denies any rashes. She had a few headaches but no headache now. No chest pain. No dyspnea. Occasional pain in her belly which she reports has been normal for her. She reports lower extremity edema that is stable. She had some vomiting but no diarrhea. PAST MEDICAL HISTORY: Rheumatoid arthritis, diabetes mellitus type 2, diabetic neuropathy, hypertension, gastroesophageal reflux disease, hyperlipidemia. PAST SURGICAL HISTORY: Cholecystectomy, tubal ligation, appendectomy. She recently had upper endoscopy with Dr. Hansen on 04/08/2018 which he removed two gastric polyps. MEDICATIONS: Please see the home medication reconciliation list. ALLERGIES: NKDA. SOCIAL HISTORY: She has a history of smoking but quit in 1991. She reports she has one alcoholic beverage per month. She lives with her and their dog. FAMILY HISTORY: Her mother is and did not have any major health problems. Her father is from heart disease and diabetes. PHYSICAL EXAMINATION: VITAL SIGNS: Temperature current 99.3F, heart rate 95 to 110 currently 95, respiratory rate 18 to 19, blood pressure 108 to 119 over 64 to 82, weight 105.6 kg. Oxygen saturation 96 to 98% on 2 liters nasal cannula. GENERAL: The patient is lying in bed a pleasant talkative lady. Her is at the bedside. CVS: She has a regular rate and rhythm. No murmurs, gallops or rubs are appreciated. CHEST: Clear to auscultation bilaterally. No crackles or wheezes. ABDOMEN: Soft, nontender, nondistended with normal bowel sounds. EXTREMITIES: Trace edema bilateral. No clubbing or cyanosis. SKIN: Warm, dry, intact and without rashes. LABORATORY DATA AND TESTS: White blood cell count 4.5, hemoglobin 16.1, PLT 139,000. Sodium 136, chloride 94, carbon dioxide 22, BUN 22, creatinine 1.4, glucose 438, lactic acid 2.8, AST 47, ALT 36. UA had 25 to 50 white blood cells, moderate bacteria, 1,000 glucose. She has urine cultures and blood cultures in lab from today. Urine cultures from yesterday were growing gram-negative organism with ID and sensitivity pending. She had a chest x-ray that was read as nonacute chest with chronic features. ASSESSMENT AND PLAN: 1) SEPSIS DUE TO URINARY TRACT INFECTION: She shows both evidence of organ dysfunction and infection. She has been started on antibiotics in the emergency department. She received a dose of ceftriaxone. Urine culture from yesterday is growing gram-negative organism and will continue to follow this. She also has a repeat urine culture in lab as well as blood cultures x2. I will plan to recheck labs in the a.m. Her AST and ALT are elevated as well as her creatinine. Will continue with IV fluids. 2) DIABETES MELLITUS TYPE 2, UNCONTROLLED: Will plan to start her on a long-acting insulin as well as a low dose sliding scale, will check an A1C and thyroid test. I will hold her Trulicity and Januvia while she is here. 3) CHRONIC KIDNEY DISEASE STAGE 3: Appears to be her baseline and she also has acute renal failure. Will continue with IV fluids. Her potassium is normal at 3.8. 4) RHEUMATOID ARTHRITIS: We talked about the importance of not receiving medications that would suppress her immune system when she has an active infection and making sure that her other physicians know that she is on these once she start receiving the infusions. 5) DIABETIC NEUROPATHY: She will continue to follow up as an outpatient for this.
[2018-05-23] MEDS ORDERED: ROCEPHIN 1 Gm-D5w 50 ml Bag** 1 G/50 ML IVPB IV SCH (10:00)
--- NOTE | 2018-05-23 12:48 | DS ---
DISCHARGE DIAGNOSES: 1) URINARY TRACT INFECTION. 2) DEHYDRATION. 3) HYPOGLYCEMIA. HISTORY: The patient is a 72 year-old white female who reports that she began having problems with nausea. She had been having some chills and running fever over the past three days. She was seen in the office and given antibiotic but she did not take the medication because she was due for an infusion for arthritis by Dr. Dozier, Sales Ledger Clerk. The patient was seen in the emergency room and admitted to the hospital for IV fluids and IV antibiotics. She was given Rocephin IV in the emergency room. PAST MEDICAL/SURGICAL HISTORY: Otherwise significant for gastric polyps as she has had a recent upper endoscopy and biopsy of the polyps. She reports she has been having trouble with gastric acid reflux since that time. She also has diabetes mellitus type 2. HOME MEDICATIONS: Dexilant 60 mg a day, Albuterol PRN, Amlodipine 5 mg a day, Trulicity 1.5 mg weekly, metoprolol 50 mg daily, potassium 10 mEq daily, Neurontin 300 mg t.i.d., Zofran 4 mg PRN for nausea, Crestor 10 mg a day, Januvia 25 mg, Actemra 200 mg IV infusion for her arthritis, Maxzide 25 and Reglan 10 mg a.c. and h.s. ALLERGIES: NKDA. PHYSICAL EXAMINATION: Reveals an obese white female currently feeling much better. Her temperature in the emergency room showed 99.3F, pulse 110, respiratory rate 18, blood pressure 108/82. O2 saturation 99%. HEENT: Normocephalic, atraumatic. Pupils equal round reactive to light. Extraocular movements intact. Oropharynx is somewhat dry. NECK: Supple without lymphadenopathy, thyromegaly or JVD. CHEST: Clear to auscultation with good air movement bilaterally. HEART: Regular rate and rhythm without murmurs, rubs or gallops. ABDOMEN: Soft. No palpable masses. EXTREMITIES: Without clubbing, cyanosis or edema. She did report perineal small lump that she thought was a boil but on examination nothing specific was seen. LAB DATA AND TESTS: Her laboratory studies initially showed white blood cell count 4,500, hemoglobin 16.1, PLT 139,000. There appeared to be a mild left shift with 78% granulocytes. Her sugar was 438. BUN 22, creatinine 1.4. Liver enzymes slightly elevated. AST 47, ALT 37. Electrolytes were normal. UA showed 1+ leukocytes, nitrite however negative. There was 1,000 glucose. There were 25 to 50 white blood cells per high power field. Lactic acid 2.8. HOSPITAL COURSE: The patient was admitted to the medicine ca and given IV fluids and IV Rocephin. By the next morning her white blood cell count was 5,700, hemoglobin 13.5, PLT count 110,000. Sugar was 225. BUN 19, creatinine 1.05. Potassium was slightly low at 3.0. Liver enzymes had normalized. Lactic acid 1.7. The patient was requesting to go home and she looked her usual state of health at this time. Urine cultures are currently pending and she will be discharged home on Augmentin 875 mg twice a day for 10 days. She is to continue her usual home medications as listed above and call me for any problems in the interim.
== END 2018-05-23 09:25 | disposition home or self-care (01) ==
LOC: ED 13:09 → MED SURG 16:52 → INTOOBSV 16:52
PROVIDERS: ADMIT Internal Medicine; ATTEND Family Medicine
DX: N39.0 Urinary tract infection, site not specified (principal); E86.0 Dehydration; M19.90 Unspecified osteoarthritis, unspecified site; E11.649 Type 2 diabetes mellitus with hypoglycemia without coma; Z79.899 Other long term (current) drug therapy; K31.7 Polyp of stomach and duodenum; I10 Essential (primary) hypertension; K21.9 Gastro-esophageal reflux disease without esophagitis; E78.5 Hyperlipidemia, unspecified; M06.9 Rheumatoid arthritis, unspecified; Z23 Encounter for immunization
CPT/HCPCS: 36000; 36415; 71045; 80053; 81000; 82962; 83036; 83605; 84443; 85025; 87040; 87077; 87086; 87186; 94760; 96360; 96361; 96365; 96374; 99285; G0378; P9612; 90662; G0008; J0696; J2405; A9270-GY

== ENCOUNTER 2020-06-09 07:45 | Day surgery (SDC) | payer MEDICARE ==
[2012-05-24 11:15] VITALS: BP 120/68
[~2020-06-09 07:45] MED LIST changes: +DIPRIVAN 200 MG/20 ML IV ONE; +Ketamine HCl 50 MG/ML ONE; -Lactated Ringers 1,000 ML IV SCH
[2020-06-09] MEDS ORDERED: Depo-Medrol 40 MG/ML IM ONE (07:46)
[2020-06-09] MEDS ORDERED: BUPIVACAINE 0.5% VIAL IJ ONE (07:46)
--- NOTE | 2020-06-09 10:49 | XRAY ---
Indication: Bilateral SI joint injection. Intraoperative fluoroscopy provided for 17 seconds. 4 digital spot images submitted for interpretation demonstrates posterior needle tip projecting over the inferior left and right SI joints. Correlate with intraoperative findings/report.
--- NOTE | 2020-06-09 10:53 | XRAY ---
17 seconds fluoroscopy time in surgery for bilateral SI joint injections.
[2020-06-09] MEDS ORDERED: Lactated Ringers 1,000 ML IV ONE (13:43)
== END 2020-06-09 09:42 | disposition home or self-care (01) ==
LOC: SDC-PAIN 07:45
PROVIDERS: ATTEND Psychiatry & Neurology Pain Medicine
DX: M46.1 Sacroiliitis, not elsewhere classified (principal); E11.9 Type 2 diabetes mellitus without complications; I10 Essential (primary) hypertension; M06.9 Rheumatoid arthritis, unspecified; G62.9 Polyneuropathy, unspecified; Z79.899 Other long term (current) drug therapy
CPT/HCPCS: 72202; 77002; 82962; 99100; J1030; J2704

== ENCOUNTER 2020-06-21 08:10 | Day surgery (SDC) | payer MEDICARE ==
--- NOTE | 2020-06-21 08:02 | HP ---
DATE OF SURGERY: 06/21/2020 HISTORY OF PRESENT ILLNESS: The patient is a 74 year old with upper esophagus dysphagia a little more frequently. She had episodes of stomach emptying issues in the past. She denies any pain. There is concern for aspiration. She is need of upper endoscopy possible biopsy possible dilatation. PAST MEDICAL HISTORY: Diabetic neuropathy. Hypertension. Reflux. Chronic obstructive pulmonary disease. PAST SURGICAL HISTORY: Cholecystectomy. Appendectomy. Upper endoscopy in the past. She had HOT MILL WORKER surgery, tubal in the past. Tonsillectomy in the past. MEDICATIONS: Actemra, amlodipine, Dexilant, gabapentin, Januvia, Lantus, rosuvastatin, metoclopramide, vitamin D, metoprolol, triamterene, Trulicity. ALLERGIES: NKDA. FAMILY HISTORY: Heart disease, diabetes, cancer. SOCIAL HISTORY: Denies alcohol abuse. REVIEW OF SYSTEMS: Fourteen systems reviewed. No chest pain or palpitations. Other systems negative or noncontributory as above and per preadmission questionnaire. PHYSICAL EXAMINATION: GENERAL: A chronically ill female in no acute distress. HEENT: Sclerae nonicteric. NECK: No JVD. CHEST: Equal excursion, nonlabored breathing. CVS: Regular rate and rhythm. ABDOMEN: Soft, nontender. EXTREMITIES: No significant edema. NEURO: Alert, oriented, moving extremities grossly symmetrically. No gross motor deficits noted. PSYCH: Appropriate mood and affect. IMPRESSION: Dysphagia, some gastric emptying issues or gastroparesis in the past. She is need of possible biopsy possible dilatation as an outpatient. Risks and benefits explained in detail including but not limited to bleeding or infection, risk of bowel injury or perforation possibly requiring open procedure, risk of missed or nondiagnosis or incomplete exam possibly requiring other studies or procedures. General risk of anesthesia or sedation, risk of aspiration but not limited to. Possibility that the procedure may not improve her swallowing as she may have more of a gastric emptying issue. She understands if it does improve her swallowing may need it repeated again down the road. She understands and will proceed with EGD possible biopsy possible dilatation as an outpatient.
[~2020-06-21 08:10] MED LIST changes: -Ketamine HCl 50 MG/ML ONE; +Lactated Ringers 1,000 ML IV SCH
[2020-06-21] MEDS ORDERED: Lactated Ringers 1,000 ML IV ONE (08:28)
[2020-06-21] MEDS ORDERED: Sodium Chloride 0.9% 10 ML FLUSH Syringe PORT FLUSH PRN (11:29)
[2020-06-21 11:35] VITALS: BP 147/84; PULSE 85; O2SAT 92
--- NOTE | 2020-06-21 14:06 | OP ---
SURGERY DATE/TIME: 06/21/2020 1030 PREOPERATIVE DIAGNOSIS: Dysphagia. POSTOPERATIVE DIAGNOSES: 1) Mild gastritis. 2) Fundal gland polyp. 3) Short segment distal gastroesophagitis versus early Potter's, path pending. 4) Proximal esophageal narrowing and spasm requiring dilatation. PROCEDURES: 1) EGD with cold biopsy antrum for Helicobacter pylori. 2) Cold biopsy of gastric polyp. 3) Multiple cold biopsies 1 cm apart distal esophagus to evaluate for esophagitis versus Potter's, path pending. 4) Proximal esophageal balloon dilatation. 5) Symptomatic proximal esophageal narrowing (size 20 balloon). SURGEON: Dr. Eddie Hansen. ANESTHESIA: General. ESTIMATED BLOOD LOSS: Minimal. INDICATIONS: As noted above. Risks and benefits explained in detail and not limited to and consent obtained. DESCRIPTION OF PROCEDURE AND FINDINGS: The patient is taken to the operating room. MAC anesthesia introduced. After official time out and no disagreement with planned procedure, bite block positioned. Video gastroscope easily passed down the oropharynx. There was a narrowing and spasm without any obvious mass in the proximal esophagus where she is having symptoms. The scope was able to be passed through here but it was felt this warranted dilatation given her symptoms in this area. The scope passed back down through the gastroesophageal junction through the patent pylorus to the junction of the second and third portion of the duodenum. Second and third portion of duodenum grossly unremarkable. No signs of any ulcers or masses. Scope pulled back in the stomach. She had some mild gastritis. Cold biopsies taken to evaluate for Helicobacter pylori. Good hemostasis was noted. On retroflex gastroesophageal junction snug against the scope. No signs of any significant sliding hiatal hernia that could be visualized endoscopically. The scope was straightened. Benign appearing fundal gland polyps. Cold biopsy taken. Good hemostasis noted. Scope pulled back to distal esophagus. Gastroesophageal junction was about 39 to 40 cm with a short segment of cobblestone and some fingerlettes of salmon-pink mucosa. These were biopsied 1 cm apart. Multiple cold biopsies were taken for evaluation for Potter's esophagus. Good hemostasis noted. Otherwise no signs of any obvious masses. She did have proximal narrowing and dilatation. The proximal esophagus felt to warrant balloon dilatation given her symptoms. There was no evidence of any mass or lesion to biopsy in that area. Therefore the scope passed back down in the stomach. Balloon catheter carefully inserted. Under direct vision of the stomach and then pulled up to narrowed area in proximal esophagus. The balloon carefully inflated first stage 45 seconds, second 45 seconds and final stage for about 2 minutes size 20 balloon dilatator. The balloon catheter is then released and withdrawn. The scope more easily passed through here back down in the stomach and carefully withdrawn. The biopsy sites had good hemostasis. The dilated segment was more widely patent. There is no evidence of any full thickness issues or injury. The scope is withdrawn. The patient tolerated the procedure well. Findings discussed with the in the waiting area. I will see her back in the office next week.
== END 2020-06-21 11:45 | disposition home or self-care (01) ==
LOC: SDC 08:10
PROVIDERS: ATTEND Surgery
DX: K29.70 Gastritis, unspecified, without bleeding (principal); K22.2 Esophageal obstruction; K31.7 Polyp of stomach and duodenum; R13.10 Dysphagia, unspecified; I10 Essential (primary) hypertension; E11.40 Type 2 diabetes mellitus with diabetic neuropathy, unspecified; Z79.899 Other long term (current) drug therapy; J44.9 Chronic obstructive pulmonary disease, unspecified
CPT/HCPCS: 82962; 88305; 94250; 99100; C1726; J1642; J2704

== ENCOUNTER 2020-08-11 21:25 | Inpatient (IN) | payer MEDICARE ==
--- NOTE | 2020-08-11 21:28 | ERPHSYRPT ---
- History of Present Illness Time Seen by Provider: 08/11/20 21:28 Source: patient Exam Limitations: no limitations Physician History: This is a 74-year-old obese white female who is a patient of Dr. Salcido and has a history of hypertension, diabetes, rheumatoid arthritis and COPD and was tested on 08/03/2020 for COVID-19. She had a positive test return on 08/07/2020. Since that time her symptoms of shortness of breath and cough has worsened. She has had no fever she has no nausea vomiting or diarrhea and denies headache. She has no chest pain. Patient arrived to the emergency department today short of breath with hypoxia of 88% on room air oxygenation saturation level. Timing/Duration: other (Symptoms since prior to August 03) Activities at Onset: activity Severity of Dyspnea-Max: moderate Severity of Dyspnea-Current: moderate Possible Cause: no prior episodes Modifying Factors: Improves With: activity Associated Symptoms: cough, No chest pain/discomfort Allergies/Adverse Reactions: No Known Drug Allergies Allergy (Verified 08/11/20 22:30) Home Medications: Dexlansoprazole [Dexilant] 60 mg PO DAILY 05/20/12 [History] Amlodipine Besylate 5 mg [Norvasc 5 mg] 5 mg PO DAILY 03/20/15 [History] Dulaglutide [Trulicity] 1.5 mg SQ WEEKLY 01/12/18 [History] Metoprolol Succinate 50 mg PO DAILY 01/12/18 [History] Potassium Chloride 10 meq PO TID 01/12/18 [History] Cholecalciferol (Vitamin D3) [Vitamin D] 5,000 unit PO DAILY 02/28/18 [History] Gabapentin [Neurontin] 600 mg PO TID 02/28/18 [History] Ondansetron ODT 4 MG [Zofran Odt 4 mg] 8 mg PO DAILY 02/28/18 [History] Rosuvastatin Calcium 10 mg PO DAILY 02/28/18 [History] Sitagliptin Phosphate [Januvia] 25 mg PO DAILY 02/28/18 [History] Tocilizumab 200 mg/10 ml [Actemra] 200 mg IV UD 02/28/18 [History] Triamterene/Hydrochlorothiazid [Triamterene-Hctz 37.5-25 mg Cp] 1 each PO DAILY 02/28/18 [History] Insulin Glargine,Hum.rec.anlog [Lantus Solostar] 55 unit SQ HS 06/02/20 [History] Nortriptyline HCl 50 mg PO HS 06/21/20 [History] Hx Tetanus, Diphtheria Vaccination/Date Given: No Hx Influenza Vaccination/Date Given: No Hx Pneumococcal Vaccination/Date Given: Yes Travel Risk - International Travel Have you traveled outside of the country in past 3 weeks: No - Coronavirus Screening Are you exhibiting any of the following symptoms?: No Close contact with a COVID-19 positive Pt in past 14-21 Days: No - Review of Systems Constitutional: Weakness Eyes: No Symptoms Ears, Nose, & Throat: No Symptoms Respiratory: No Symptoms Cardiac: No Symptoms Abdominal/Gastrointestinal: No Symptoms Genitourinary Symptoms: No Symptoms Musculoskeletal: No Symptoms Skin: No Symptoms Neurological: No Symptoms Psychological: No Symptoms Endocrine: No Symptoms Hematologic/Lymphatic: No Symptoms Immunological/Allergic: No Symptoms All Other Systems: Reviewed and Negative - Past Medical History Pertinent Past Medical History: Yes Neurological History: No Pertinent History ENT History: No Pertinent History Cardiac History: High Cholesterol, Hypertension Respiratory History: COPD Endocrine Medical History: Diabetes Type II Musculoskeletal History: Rheumatoid Arthritis, Other GI Medical History: GERD, Polyps, Other History: No Pertinent History Psycho-Social History: No Pertinent History Female Reproductive Disorders: No Pertinent History Other Medical History: Hx of nausea. mild COPD. neuropathy. gastric polyp - Past Surgical History Past Surgical History: Yes Neuro Surgical History: No Pertinent History Cardiac: No Pertinent History Respiratory: No Pertinent History Gastrointestinal: Appendectomy, Cholecystectomy Genitourinary: No Pertinent History Musculoskeletal: No Pertinent History Female Surgical History: Tubal Ligation Other Surgical History: TONSIL. EGD 5 YEARS AGO. COLONOSCOPY. D&C - Social History Smoking Status: Never smoker How long have you smoked: 33 YEARS Exposure to second hand smoke: No Alcohol Use: None Drug Use: none Patient Lives Alone: No Significant Family History: no pertinent family hx - Nursing Vital Signs Nursing Vital Signs: Initial Vital Signs Temperature 97.5 F 08/11/20 21:48 Pulse Rate 94 H 08/11/20 21:48 Respiratory Rate 20 08/11/20 21:48 Blood Pressure 136/92 08/11/20 21:48 O2 Sat by Pulse Oximetry 94 L 08/11/20 21:48 Pain Scale Pain Intensity 0 - Physical Exam General Appearance: mild distress, alert Eye Exam: PERRL/EOMI, eyes nml inspection Ears, Nose, Throat Exam: hearing grossly normal, normal ENT inspection, normal pharynx Neck Exam: normal inspection, non-tender, supple, full range of motion Respiratory Exam: normal breath sounds, lungs clear, respiratory distress, No chest tenderness, No airway intact (Old) Cardiovascular/Chest Exam: normal heart sounds, regular rate/rhythm Abdominal/Gastrointestinal Exam: soft, normal bowel sounds, No tenderness Rectal Exam: not done Extremity Exam: non-tender, normal range of motion, normal inspection Neurologic Exam: alert, oriented x 3, cooperative, 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 There is no comparison EKG.) Ordered Tests: Active Orders 24 hr Category Date Time Status EKG-ER Only STAT Care 08/11/20 22:01 Active IV Insertion STAT Care 08/11/20 22:01 Active Isolation, Initiate & Maintain STAT Care 08/11/20 22:02 Active Oxygen-ED Only Nasal Cannula 2 lpm Care 08/11/20 22:01 Active Pulse Oximetry (ED) STAT Care 08/11/20 22:01 Active CHEST 1 VIEW (PORTABLE) Stat Exams 08/11/20 22:02 Taken BLOOD CULTURE Stat Lab 08/11/20 22:30 Received CBC W DIFF Stat Lab 08/11/20 22:30 Completed CMP Stat Lab 08/11/20 22:30 Completed D-DIMER QUANTITATIVE Stat Lab 08/11/20 22:30 Completed Ferritin Stat Lab 08/11/20 22:30 Received INFLUENZA A+B ERIN Stat Lab 08/11/20 22:40 Completed LDH-LACTATE DEHYDROGENASE Stat Lab 08/11/20 22:30 Completed Lactic Acid Stat Lab 08/11/20 22:37 Completed White Screen Stat Lab 08/11/20 22:30 Completed TROPONIN Q3H Lab 08/11/20 22:30 Completed TROPONIN Q3H Lab 08/12/20 01:15 Ordered TROPONIN Q3H Lab 08/12/20 04:15 Ordered TROPONIN Q3H Lab 08/12/20 07:15 Ordered TROPONIN Q3H Lab 08/12/20 10:15 Ordered UA W/RFX UR CULTURE Stat Lab 08/11/20 22:02 Ordered Transfer Order Routine Transfer 08/11/20 Ordered Medication Summary Generic Name Dose Route Start Last Admin Trade Name Freq PRN Reason Stop Dose Admin Sodium Chloride 1,000 mls @ 100 mls/hr 08/11/20 22:15 08/11/20 22:22 Sodium Chloride 0.9% 1000 Ml IV 09/10/20 22:14 100 mls/hr .Q10H GORAN Administration Discontinued Medications Generic Name Dose Route Start Last Admin Trade Name Freq PRN Reason Stop Dose Admin Dexamethasone Sodium Phosphate 6 mg 08/11/20 22:05 08/11/20 22:23 Decadron 4 Mg Inj IV 08/11/20 22:06 6 mg STAT ONE Administration Dexamethasone Sodium Phosphate Confirm 08/11/20 22:17 Decadron 10mg Inj. Administered 08/11/20 22:18 Dose 10 mg .ROUTE .STK-MED ONE Ondansetron HCl 4 mg 08/11/20 22:01 08/11/20 22:23 Zofran 4 Mg/2 Ml Vial IV 08/11/20 22:02 4 mg STAT STA Administration Ondansetron HCl Confirm 08/11/20 22:17 Zofran 4 Mg/2 Ml Vial Administered 08/11/20 22:18 Dose 4 mg .ROUTE .STK-MED ONE Lab/Rad Data: Laboratory Result Diagrams 08/11/20 22:30 08/11/20 22:30 Laboratory Results 08/11/20 08/11/20 08/11/20 Range/Units 22:40 22:40 22:37 WBC (4.0-10.5) K/mm3 RBC (4.1-5.4) M/mm3 Hgb (12.0-16.0) gm/dl Hct (35-47) % MCV (78-100) fl MCH (26-32) pg MCHC (32-36) g/dl RDW (11.5-14.0) % Plt Count (150-450) K/mm3 MPV (7.5-11.0) fl Gran % (36.0-66.0) % Eos # (Auto) (0-0.5) Absolute Lymphs (auto) (1.0-4.6) Absolute Monos (auto) (0.0-1.3) Lymphocytes % (24.0-44.0) % Monocytes % (0.0-12.0) % Eosinophils % (0.00-5.0) % Basophils % (0.0-0.4) % Absolute Granulocytes (1.4-6.9) Basophils # (0-0.4) D-Dimer (215-500) ng/mL Sodium (137-145) mmol/L Potassium (3.5-5.1) mmol/L Chloride (98-107) mmol/L Carbon Dioxide (22-30) mmol/L Anion Gap (5-15) MEQ/L BUN (7-17) mg/dL Creatinine (0.52-1.04) mg/dL Estimated GFR ML/MIN Glucose (74-106) mg/dL Lactic Acid 2.8 H (0.4-2.0) Calcium (8.4-10.2) mg/dL Total Bilirubin (0.2-1.3) mg/dL AST (14-36) U/L ALT (0-35) U/L Alkaline Phosphatase (38-126) U/L Lactate Dehydrogenase (120-246) U/L Troponin I (0.000-0.034) ng/mL Serum Total Protein (6.3-8.2) g/dL Albumin (3.5-5.0) g/dL Monoscreen (Negative) Influenza Type A Ag NEGATIVE (NEGATIVE) Influenza Type B Ag POSITIVE (NEGATIVE) Group A Strep Antibody NOT DETECTED (NEGATIVE) 08/11/20 08/11/20 08/11/20 Range/Units 22:30 22:30 22:30 WBC (4.0-10.5) K/mm3 RBC (4.1-5.4) M/mm3 Hgb (12.0-16.0) gm/dl Hct (35-47) % MCV (78-100) fl MCH (26-32) pg MCHC (32-36) g/dl RDW (11.5-14.0) % Plt Count (150-450) K/mm3 MPV (7.5-11.0) fl Gran % (36.0-66.0) % Eos # (Auto) (0-0.5) Absolute Lymphs (auto) (1.0-4.6) Absolute Monos (auto) (0.0-1.3) Lymphocytes % (24.0-44.0) % Monocytes % (0.0-12.0) % Eosinophils % (0.00-5.0) % Basophils % (0.0-0.4) % Absolute Granulocytes (1.4-6.9) Basophils # (0-0.4) D-Dimer 1191 H* (215-500) ng/mL Sodium (137-145) mmol/L Potassium (3.5-5.1) mmol/L Chloride (98-107) mmol/L Carbon Dioxide (22-30) mmol/L Anion Gap (5-15) MEQ/L BUN (7-17) mg/dL Creatinine (0.52-1.04) mg/dL Estimated GFR ML/MIN Glucose (74-106) mg/dL Lactic Acid (0.4-2.0) Calcium (8.4-10.2) mg/dL Total Bilirubin (0.2-1.3) mg/dL AST (14-36) U/L ALT (0-35) U/L Alkaline Phosphatase (38-126) U/L Lactate Dehydrogenase (120-246) U/L Troponin I < 0.012 (0.000-0.034) ng/mL Serum Total Protein (6.3-8.2) g/dL Albumin (3.5-5.0) g/dL Monoscreen NEGATIVE (Negative) Influenza Type A Ag (NEGATIVE) Influenza Type B Ag (NEGATIVE) Group A Strep Antibody (NEGATIVE) 08/11/20 08/11/20 Range/Units 22:30 22:30 WBC 5.1 (4.0-10.5) K/mm3 RBC 5.09 (4.1-5.4) M/mm3 Hgb 15.6 (12.0-16.0) gm/dl Hct 47.1 H (35-47) % MCV 92.5 (78-100) fl MCH 30.6 (26-32) pg MCHC 33.1 (32-36) g/dl RDW 14.6 H (11.5-14.0) % Plt Count 207 (150-450) K/mm3 MPV 10.9 (7.5-11.0) fl Gran % 43.5 (36.0-66.0) % Eos # (Auto) 0.32 (0-0.5) Absolute Lymphs (auto) 1.99 (1.0-4.6) Absolute Monos (auto) 0.56 (0.0-1.3) Lymphocytes % 38.9 (24.0-44.0) % Monocytes % 10.9 (0.0-12.0) % Eosinophils % 6.3 H (0.00-5.0) % Basophils % 0.4 (0.0-0.4) % Absolute Granulocytes 2.23 (1.4-6.9) Basophils # 0.02 (0-0.4) D-Dimer (215-500) ng/mL Sodium 141 (137-145) mmol/L Potassium 3.5 (3.5-5.1) mmol/L Chloride 103 (98-107) mmol/L Carbon Dioxide 30 (22-30) mmol/L Anion Gap 11.5 (5-15) MEQ/L BUN 20 H (7-17) mg/dL Creatinine 1.88 H (0.52-1.04) mg/dL Estimated GFR 27.9 ML/MIN Glucose 214 H (74-106) mg/dL Lactic Acid (0.4-2.0) Calcium 9.7 (8.4-10.2) mg/dL Total Bilirubin 1.00 (0.2-1.3) mg/dL AST 27 (14-36) U/L ALT 22 (0-35) U/L Alkaline Phosphatase 69 (38-126) U/L Lactate Dehydrogenase 208 (120-246) U/L Troponin I (0.000-0.034) ng/mL Serum Total Protein 7.2 (6.3-8.2) g/dL Albumin 4.2 (3.5-5.0) g/dL Monoscreen (Negative) Influenza Type A Ag (NEGATIVE) Influenza Type B Ag (NEGATIVE) Group A Strep Antibody (NEGATIVE) - Progress Progress: improved Air Movement: good Progress Note: 08/11/20 23:15 Chest x-ray shows no acute cardiopulmonary process 08/11/20 23:37 Medical decision making: This patient is positive for COVID-19 infection. She presents with hypoxia and also found to have influenza B positive infection. I do not feel that she is ready to be discharged to home. I contacted Dr. Johnson who agrees and we will admit this patient to our Covid unit and provide the patient with gentle IV hydration repeat labs in the morning. Patient has a degree of renal insufficiency and her GFR is low. This is keeping us from performing a CTA of the chest. Her D-dimer is likely elevated because of the COVID-19 infection. We will follow-up with the repeat D-dimer in the morning. Patient is requiring oxygen to keep her oxygen saturation in the 93-94 range. Blood Culture(s) Obtained: Yes Discussed with : Other (julien baez) Counseled pt/family regarding: lab results, diagnosis, need for follow-up, rad results - Departure Departure Disposition: In-patient Admission Clinical Impression: COVID-19 virus infection, Influenza B, Hypoxia Condition: Fair Critical Care Time: Yes Critical Care Time(excluding separately billable procedures): Critical 30-74 mins Referrals: MISBAH SALCIDO [Primary Care Provider] -
[2020-08-11] MEDS ORDERED: Zofran 4 MG/2 ML VIAL IV STA (22:01)
[2020-08-11] MEDS ORDERED: Decadron 4 MG INJ IV ONE (22:05)
[2020-08-11] MEDS ORDERED: Sodium Chloride 0.9% 1000 ML 1,000 ML IV SCH (22:15)
[2020-08-11] MEDS ORDERED: Zofran 4 MG/2 ML VIAL ONE (22:17)
[2020-08-11] MEDS ORDERED: Sodium Chloride 0.9% 1000 ML 1,000 ML ONE (22:17)
[2020-08-11] MEDS ORDERED: DECADRON 10MG INJ. ONE (22:17)
[2020-08-11 22:51] LABS: Absolute Neutrophil Ct (ANC) 2.23 (1.4-6.9); BASOPHIL % 0.4 % (0.0-0.4); Basophil (Absolute #) 0.02 (0-0.4); Eosinophil % 6.3 % (0.00-5.0); Eosinophil (Absolute #) 0.32 (0-0.5); Hematocrit 47.1 % (35-47); Hemoglobin 15.6 gm/dl (12.0-16.0); Lymphocyte (Absolute #) 1.99 (1.0-4.6); Lymphocytes % 38.9 % (24.0-44.0); Mean Cell Volume 92.5 fl (78-100); Mean Corpuscular Hemoglobin 30.6 pg (26-32); Mean Corpuscular Hgb Concent. 33.1 g/dl (32-36); Mean Platelet Volume 10.9 fl (7.5-11.0); Monocyte (Absolute #) 0.56 (0.0-1.3); Monocytes % 10.9 % (0.0-12.0); Neutrophil % 43.5 % (36.0-66.0); Platelet Count 207 K/mm3 (150-450); Red Blood Count 5.09 M/mm3 (4.1-5.4); Red Cell Distribution Width 14.6 % (11.5-14.0); White Blood Count 5.1 K/mm3 (4.0-10.5)
[2020-08-11 23:08] LABS: ALBUMIN 4.2 g/dL (3.5-5.0); ANION GAP 11.5 MEQ/L (5-15); Calcium 9.7 mg/dL (8.4-10.2); Creatinine 1 1.88 mg/dL (0.52-1.04); EST GLOMERULAR FILTRATION RATE 27.9 ML/MIN; Potassium 3.5 mmol/L (3.5-5.1); Total Protein 7.2 g/dL (6.3-8.2)
[2020-08-11 23:19] LABS: INFLUENZA A NEGATIVE (NEGATIVE)
[2020-08-11 23:20] LABS: INFLUENZA B POSITIVE (NEGATIVE)
[2020-08-12] MEDS ORDERED: REMDESIVIR 100 MG in Sodium Chloride 0.9% 100 ML IVPB 100 ML IV SCH (01:34)
[2020-08-12] MEDS ORDERED: REMDESIVIR 200 MG in Sodium Chloride 0.9% 250 ML 250 ML IV ONE (01:34)
[2020-08-12] MEDS ORDERED: Sodium Chloride 0.9% 1000 ML 1,000 ML IV SCH (01:34)
[2020-08-12] MEDS ORDERED: TYLENOL 325 MG PO PRN (01:34)
[2020-08-12] MEDS ORDERED: Zofran 4 MG/2 ML VIAL IV PRN (01:34)
[2020-08-12] MEDS ORDERED: ENOXAPARIN SODIUM ONE (02:33)
[2020-08-12] MEDS ORDERED: Ativan 1 MG PO PRN (02:36)
[2020-08-12] MEDS: ENOXAPARIN SODIUM SQ SCH ×2 (02:42→11:35)
[2020-08-12 05:56] LABS: Absolute Neutrophil Ct (ANC) 2.38 (1.4-6.9); BASOPHIL % 0.3 % (0.0-0.4); Basophil (Absolute #) 0.01 (0-0.4); Eosinophil % 0.3 % (0.00-5.0); Eosinophil (Absolute #) 0.01 (0-0.5); Hematocrit 42.1 % (35-47); Hemoglobin 13.9 gm/dl (12.0-16.0); Lymphocyte (Absolute #) 1.03 (1.0-4.6); Lymphocytes % 29.3 % (24.0-44.0); Mean Cell Volume 93.3 fl (78-100); Mean Corpuscular Hemoglobin 30.8 pg (26-32); Mean Platelet Volume 10.9 fl (7.5-11.0); Monocyte (Absolute #) 0.08 (0.0-1.3); Monocytes % 2.3 % (0.0-12.0); Neutrophil % 67.8 % (36.0-66.0); Platelet Count 189 K/mm3 (150-450); Red Blood Count 4.51 M/mm3 (4.1-5.4); Red Cell Distribution Width 14.3 % (11.5-14.0); White Blood Count 3.5 K/mm3 (4.0-10.5)
[2020-08-12 06:08] LABS: ANION GAP 9.4 MEQ/L (5-15); Calcium 9.4 mg/dL (8.4-10.2); Creatinine 1 1.77 mg/dL (0.52-1.04); EST GLOMERULAR FILTRATION RATE 29.9 ML/MIN; Potassium 3.9 mmol/L (3.5-5.1)
[2020-08-12 06:36] LABS: Appearance CLOUDY (CLEAR); Bacteria FEW /HPF (NEGATIVE); Bilirubin NEGATIVE (NEGATIVE); Blood SMALL Ery/ul (0-5); Epithelial Cells RARE /HPF (FEW); Glucose >=500 mg/dL (NEGATIVE); Ketones NEGATIVE (NEGATIVE); Leukocyte Esterase SMALL (NEGATIVE); Mucus SLIGHT /HPF (NEGATIVE); Nitrite NEGATIVE (NEGATIVE); Non-Squamous Epithelial Cells RARE /HPF (FEW); Protein,Urine Dip 30 (Negative); Specific Gravity 1.016 (1.005-1.025); Urobilinogen NEGATIVE mg/dL (0-1)
--- NOTE | 2020-08-12 09:11 | XRAY ---
Indication: Cough, chest pain, and short of breath. Positive Covid 19. Comparison: May 22, 2018. Portable chest demonstrates new mid to lower lung hazy interstitial alveolar opacities, right greater than left. Remaining heart and bony thorax unremarkable again with incidental left Port-A-Cath and osteopenia. Comment: Lung findings not reported by interpreting ER clinician. Telephone report given to Dr. Kirk in the ER at 0905 hrs. on August 12, 2020.
[2020-08-12] MEDS ORDERED: Ventolin Hfa MDI IH PRN (10:07)
[2020-08-12] MEDS ORDERED: TYLENOL EXTRA STRENGTH 500 MG PO PRN (10:07)
[2020-08-12] MEDS ORDERED: TOCILIZUMAB IV SCH (10:15)
[2020-08-12] MEDS ORDERED: VENTOLIN COMMON CANISTER IH PRN (10:21)
[2020-08-12] MEDS ORDERED: MEDICATION INTERVENTION MC SCH (10:30)
[2020-08-12] MEDS: NEURONTIN 300 MG PO SCH (11:27)
[2020-08-12] MEDS: VITAMIN D PO SCH (11:27)
[2020-08-12] MEDS: Klor Con 10 MEQ PO SCH ×3 (11:28→22:05)
[2020-08-12] MEDS: Maxzide-25MG Tablet PO SCH (11:28)
[2020-08-12] MEDS: Toprol Xl 50 MG PO SCH (11:28)
[2020-08-12] MEDS: ZOFRAN ODT 4 MG PO SCH (11:28)
[2020-08-12] MEDS: NORVASC 5 MG PO SCH (11:29)
[2020-08-12] MEDS: Protonix 40MG Tablet PO SCH (11:29)
[2020-08-12] MEDS: Januvia 50 MG PO SCH (11:30)
[2020-08-12] MEDS: Decadron 4 MG INJ IV SCH ×2 (11:42→22:05)
[2020-08-12] MEDS: Sodium Chloride 0.9% 10 ML FLUSH Syringe IV SCH ×2 (15:35→22:05)
[2020-08-12] MEDS: HUMALOG SQ PRN ×2 (16:35→22:06)
[2020-08-12] MEDS ORDERED: INSULIN GLARGINE HUM REC ANLOG 55 UNIT SQ SCH (18:00)
[2020-08-12] MEDS ORDERED: Lantus Insulin SQ SCH (18:00)
[2020-08-12] MEDS ORDERED: Neurontin 400 MG PO SCH (22:00)
[2020-08-12] MEDS ORDERED: NORTRIPTYLINE HCL PO SCH (22:00)
[2020-08-12] MEDS: ZOCOR 20MG PO SCH ×2 (22:05)
[2020-08-13] MEDS: Sodium Chloride 0.9% 10 ML FLUSH Syringe IV SCH (04:51)
[2020-08-13 05:55] LABS: INR 1.08 (0.8-3.0); PROTIME 12.2 SECONDS (9.95-12.35)
[2020-08-13 06:01] LABS: ALBUMIN 3.8 g/dL (3.5-5.0); ANION GAP 9.1 MEQ/L (5-15); BILIRUBIN,TOTAL 0.7 mg/dL (0.2-1.3); Creatinine 1 1.36 mg/dL (0.52-1.04); EST GLOMERULAR FILTRATION RATE 40.5 ML/MIN; Total Protein 6.4 g/dL (6.3-8.2)
[2020-08-13] MEDS ORDERED: REMDESIVIR 100 MG in Sodium Chloride 0.9% 100 ML IVPB 100 ML IV SCH (08:00)
[2020-08-13] MEDS: NEURONTIN 300 MG PO SCH ×2 (09:00→12:11)
[2020-08-13] MEDS ORDERED: NON-FORMULARY ITEM (Sitagliptin Phosphate [Januvia] 25 MG) PO SCH (10:00)
[2020-08-13] MEDS ORDERED: NON-FORMULARY ITEM (Triamterene/Hydrochlorothiazid [Triamterene-Hctz 37.5-25 Mg Cp] 1 EACH PO SCH (10:00)
[2020-08-13] MEDS ORDERED: NON-FORMULARY ITEM (Dexlansoprazole [Dexilant] 60 MG) PO SCH (10:00)
[2020-08-13] MEDS: ENOXAPARIN SODIUM SQ SCH (10:05)
[2020-08-13] MEDS: Decadron 4 MG INJ IV SCH (10:05)
[2020-08-13] MEDS: Klor Con 10 MEQ PO SCH (10:06)
--- NOTE | 2020-08-13 10:06 | HP ---
HISTORY OF PRESENT ILLNESS: The patient is a 74 year old white female who presented to the emergency room with symptoms of shortness of breath and cough which has gotten worse over three days. She has had no fever, nausea, vomiting and diarrhea. No abdominal pain. She was hypoxic in the emergency room with an O2 saturation of 88% on room air. She states her shortness of breath is quite marked and has gotten increasingly worse over the last three days. She has no chest pain. She is a nonsmoker. MEDICATIONS: Dexilant 60 q.d., amlodipine 5 q.d., Trulicity 1.5 q.d., metoprolol 50 q.d., KCL 10 q.d., vitamin D3 5,000 units q.d., Gabapentin 600 mg t.i.d., Zofran 4 mg every four hours PRN, rosuvastatin 10 mg q.d., sitagliptin which is Januvia 25 mg q.d., Actemra 200 mg IV, triamterene/hydrochlorothiazide 37/25 q.d., Lantus insulin 55 units h.s., nortriptyline 50 h.s. ALLERGIES: SIMVASTATIN. PAST MEDICAL HISTORY: Diabetes mellitus, peripheral neuropathy with numbness and burning of the feet for a long time preceding the diabetes. PAST SURGICAL HISTORY: Tonsillectomy. EGD which was okay. REVIEW OF SYSTEMS: CONSTITUTIONAL: Weakness, aching a little bit. HEENT: No problems hearing or seeing. RESPIRATORY: No shortness of breath until the last two days when she has been coughing a little bit. GI: No symptoms, nausea, vomiting or constipation. MUSCULOSKELETAL: No problems. NEUROLOGIC: The patient has numbness and has tingling and burning in the feet but mostly it is numbness for a long time. The nortriptyline has never really helped. Neurontin she thinks may have helped. EXPOSURE: The patient has had had no real travel. None in the family has it. SOCIAL HISTORY: I believe she has smoked for 33 years. Apparently the family does not have COVID as far as she knows. PHYSICAL EXAMINATION: The patient is alert, orientated, looks in no distress and is very pleasant this morning. HEENT: Pupils equal and reactive to light. Hearing normal. NECK: Supple without adenopathy, JVD or thyromegaly. CHEST: Clear. No chest wall tenderness. CVS: Regular rate. No murmurs or gallops. ABDOMEN: Soft. No tenderness or organomegaly. EXTREMITIES: Decreased sensation of the feet and knees. Her gait is slow. LAB DATA AND TESTS: EKG showed left axis deviation, right bundle branch block. Lab work: The patient's white count was 5.1, hemoglobin 15.7. Lactic acid was minimally high at 2.8. Influenza A was negative. Influenza B was positive which is probably a false positive. We see no influenza. She does not look like influenza but she has a positive COVID test so it is cross reactivity there. It would be unusual to have two viruses at the same time. D-dimer markedly elevated at 1,191 due to COVID most likely. [facility] screen negative. Troponin negative. Again, white count 5.1, hemoglobin 15.6. IMPRESSION: The patient has COVID pneumonia with mild hypoxia. PLAN: The patient will be continued on her regular medications and will be started on Decadron, Lovenox and Remdesivir 100 q.d. for four. The blood sugars will be followed closely. She has a good A1C at 7.3. Discontinued amitriptyline-type drug because of lack of effectiveness. PROGNOSIS: Good except for the lung opacities and elevated D-dimer. I will follow up daily.
[2020-08-13] MEDS: NORVASC 5 MG PO SCH (10:07)
[2020-08-13] MEDS: Maxzide-25MG Tablet PO SCH (10:07)
[2020-08-13] MEDS: Toprol Xl 50 MG PO SCH (10:08)
[2020-08-13] MEDS: VITAMIN D PO SCH (10:08)
[2020-08-13] MEDS: Protonix 40MG Tablet PO SCH (10:08)
[2020-08-13] MEDS: ZOFRAN ODT 4 MG PO SCH (10:09)
[2020-08-13] MEDS: Januvia 50 MG PO SCH (10:26)
[2020-08-13] MEDS: HUMALOG SQ PRN (10:27)
--- NOTE | 2020-08-13 11:19 | DS ---
ADMISSION DIAGNOSES: 1) COVID pneumonia. 2) Diabetes mellitus. 3) Hypertension. 4) Rheumatoid arthritis. 5) Chronic obstructive pulmonary disease. DISCHARGE DIAGNOSES: 1) COVID PNEUMONIA. 2) DIABETES MELLITUS. 3) HYPERTENSION. 4) RHEUMATOID ARTHRITIS. 5) CHRONIC OBSTRUCTIVE PULMONARY DISEASE. HISTORY: She tested positive on 08/03/2020 and she became increasingly worse and was admitted because of her shortness of breath. She had no nausea, vomiting or headache but she felt really short of breath. She was placed on 2 liters oxygen. Her oxygen was not terribly low. D-dimer was moderately elevated and stabilized. White count was slightly low normal for this disease. She stabilized on 2 liters of oxygen. Apparently felt really short of breath after she got here. She slept well, had no cough. D-dimer was 1,190 and then 1,200. She wants to go home. She has a who can take care of her. She can ambulate without too much problem. She is eating well. She states she does not feel short of breath. Her chest x-ray did show some slight infiltrates typical for COVID. No fluid. Her chest was clear on discharge. She has been afebrile. DISPOSITION: The patient will be discharged on her home medications which are Dexilant 60, Norvasc 5, Trulicity 1.5 q.week injected, Toprol 50 q.d., KCL 10 t.i.d., vitamin D3 5,000 units q.d., Zofran 4 mg one or two every six hours PRN nausea, rosuvastatin 10 q.d. for cholesterol, Januvia 25 q.d., Actemra 200 IV every so many weeks for her rheumatoid arthritis, hydrochlorothiazide 1 q.d., Lantus 55 units q.d., nortriptyline 50 h.s. She was advised to stop the nortriptyline as it does not help her neuropathy, increases the chance of arrhythmia and falls. PROGNOSIS: Fair. [place] town and I told her if she started getting more short of breath to increase the oxygen and come back to the emergency room quickly. She will get some prednisone 40 mg for five days, 20 mg for five days, [id number] cough medicine.
[2020-08-13 13:08] VITALS: BP 140/90; PULSE 94; O2SAT 97
== END 2020-08-13 13:20 | disposition home or self-care (01) | DRG 177 ==
LOC: ED 21:25 → MED SURG 08-12 01:29
PROVIDERS: ADMIT Family Medicine; ATTEND Family Medicine
DX: U07.1 COVID-19 (principal); J12.89 Other viral pneumonia; I10 Essential (primary) hypertension; E11.9 Type 2 diabetes mellitus without complications; J44.9 Chronic obstructive pulmonary disease, unspecified; M06.9 Rheumatoid arthritis, unspecified; Z79.899 Other long term (current) drug therapy; E78.00 Pure hypercholesterolemia, unspecified; R79.1 Abnormal coagulation profile
CPT/HCPCS: 36000; 36415; 71045; 80048; 80053; 81001; 82728; 82947; 83036; 83605; 83615; 84484; 85025; 85379; 85610; 86308; 87040; 87077; 87086; 87186; 87400; 87651; 93005; 94760; 94762; 96360; 96361; 96374; 96375; 99284; 99291; J1100; J1642; J1650; J1817; J2405; Q0162; A9270-GY

== ENCOUNTER 2023-01-10 13:55 | Emergency (ER) | payer MEDICARE ==
--- NOTE | 2023-01-10 15:09 | XRAY ---
Indication: Pain following injury. Comparison: December 28, 2022 3 portable views right knee unchanged again demonstrating osteopenia and minimal/mild tricompartmental degenerative changes again greatest medial compartment. No new/acute abnormalities.
[2023-01-10 15:21] VITALS: PULSE 65
[2023-01-10] MEDS ORDERED: HYDROCODONE-ACETAMIN 10-325 MG PO ONE (16:16)
[2023-01-10] MEDS ORDERED: HYDROCODONE-ACETAMIN 10-325 MG ONE (16:20)
--- NOTE | 2023-01-10 16:22 | ERPHSYRPT ---
- History of Present Illness Source: patient, family Exam Limitations: no limitations Patient Subjective Stated Complaint: "I had an XR of my knee a week or so ago and they said I had bone spurs but today I twisted my leg and now I can barely walk." Triage Nursing Assessment: Pt presents to ER with complaints of right knee pain, states injured knee today. Pt is alert and oriented x 3. Ambulates with unsteady gait. Is wheeled back to ER Room 10 in Wheelchair and pivots up to bed with assist x 2. Pt skin is pink, warm, and dry. Noted slight swelling to right knee. Tenderness noted. Ice pack applied. Limited ROM of Right leg, toes, or feet. States does have some numbness and tingling to leg but does have hx of neuropathy. No further complaints at this time. Physician History: 77 yo WF w chronic R knee pain presents w worsening pain after twisting her R knee earlier today and hearing a "pop". Pain is 10 on scale and worse w weight bearing. No other injuries at this time. Method of Injury: twisted Occurred: other (Earlier today) Quality: constant Severity of Pain-Max: severe Severity of Pain-Current: severe Lower Extremities Pain: knee: right Modifying Factors: Improves With: movement Associated Symptoms: none, popping sensation Allergies/Adverse Reactions: simvastatin Adverse Reaction (Intermediate, Verified 01/10/23 14:14) Muscle Aches Severe shoulder muscle pain metformin Adverse Reaction (Mild, Verified 01/10/23 14:14) Nausea Home Medications: Dexlansoprazole [Dexilant] 60 mg PO DAILY 05/20/12 [History] Amlodipine Besylate 5 mg [Norvasc 5 mg] 5 mg PO DAILY 03/20/15 [History] Metoprolol Succinate 50 mg PO DAILY 01/12/18 [History] Potassium Chloride 8 meq PO BID 01/12/18 [History] Ondansetron ODT 4 MG [Zofran Odt 4 mg] 8 mg PO Q6HPRN PRN 02/28/18 [History] Sitagliptin Phosphate [Januvia] 25 mg PO DAILY 02/28/18 [History] Tocilizumab 200 mg/10 ml [Actemra] 200 mg IV UD 02/28/18 [History] Triamterene/Hydrochlorothiazid [Triamterene-Hctz 37.5-25 mg Cp] 1 each PO DAILY 02/28/18 [History] Insulin Glargine,Hum.rec.anlog [Lantus Solostar] 55 unit SQ 1800 06/02/20 [History] Acetaminophen 500 mg [Tylenol Extra Strength 500 mg] 1,000 mg PO Q6H PRN PRN 08/12/20 [History] Albuterol Sulfate [Proair Hfa] 8.5 gm IH Q4H PRN PRN 08/12/20 [History] Fenofibrate Nanocrystallized [Fenofibrate] 145 mg PO DAILY 01/10/23 [History] Lactobacillus Acidophilus [Acidophilus] 1 each PO DAILY 01/10/23 [History] Lactobacillus Rhamnosus GG [Culturelle] 1 cap PO DAILY 01/10/23 [History] Hx Tetanus, Diphtheria Vaccination/Date Given: Yes Hx Influenza Vaccination/Date Given: Yes Hx Pneumococcal Vaccination/Date Given: Yes Immunizations Up to Date: Yes Travel Risk - International Travel Have you traveled outside of the country in past 3 weeks: No - Coronavirus Screening Are you exhibiting any of the following symptoms?: No Symptoms: Shortness of Breath - Vaccine Status Have you recieved a Covid-19 vaccination: Yes Formula Checker: Qmindera - Vaccination Dates Date of 2cond Vaccination (if applicable): 2020 - Review of Systems Constitutional: No Symptoms Eyes: No Symptoms Ears, Nose, & Throat: No Symptoms Respiratory: No Symptoms Cardiac: No Symptoms Abdominal/Gastrointestinal: No Symptoms Genitourinary Symptoms: No Symptoms Skin: No Symptoms Neurological: No Symptoms Psychological: No Symptoms Endocrine: No Symptoms Hematologic/Lymphatic: No Symptoms Immunological/Allergic: No Symptoms - Past Medical History Pertinent Past Medical History: Yes Neurological History: No Pertinent History ENT History: No Pertinent History Cardiac History: High Cholesterol, Hypertension Respiratory History: COPD Endocrine Medical History: Diabetes Type II Musculoskeletal History: Rheumatoid Arthritis, Other GI Medical History: GERD, Polyps, Other History: No Pertinent History Psycho-Social History: No Pertinent History Female Reproductive Disorders: No Pertinent History Other Medical History: Hx of nausea. mild COPD. neuropathy. gastric polyp, chronic kidney disease - Past Surgical History Past Surgical History: Yes Neuro Surgical History: No Pertinent History Cardiac: No Pertinent History Respiratory: No Pertinent History Gastrointestinal: Appendectomy, Cholecystectomy Genitourinary: No Pertinent History Musculoskeletal: No Pertinent History Female Surgical History: Tubal Ligation Other Surgical History: TONSIL. EGD 5 YEARS AGO. COLONOSCOPY. D&C - Social History Smoking Status: Never smoker How long have you smoked: 33 YEARS Exposure to second hand smoke: No Alcohol Use: None Drug Use: none Patient Lives Alone: No Significant Family History: no pertinent family hx - Nursing Vital Signs Nursing Vital Signs: Initial Vital Signs Temperature 96.6 F 01/10/23 14:08 Pulse Rate 71 01/10/23 14:08 Respiratory Rate 18 01/10/23 14:08 Blood Pressure 144/68 01/10/23 14:08 O2 Sat by Pulse Oximetry 94 L 01/10/23 14:08 Pain Scale Pain Intensity 10 Mildly hypertensive - Physical Exam General Appearance: no apparent distress Eyes, Ears, Nose, Throat Exam: normal ENT inspection Neck Exam: normal inspection, non-tender, supple, full range of motion Cardiovascular/Respiratory Exam: normal breath sounds, regular rate/rhythm, heart sounds normal Gastrointestinal/Abdominal Exam: non-tender Back Exam: normal inspection, No vertebral tenderness Hips Exam: bilateral: non-tender, normal inspection, normal range of motion, no evidence of injury Legs Exam: bilateral leg: non-tender, normal inspection, normal range of motion, no evidence of injury Knees Exam: right knee: other (R knee w generalized edema/TTP medially and anteriorly/Good popliteal and pedal pulse/No instbility) Ankle Exam: bilateral ankle: non-tender, normal inspection, normal range of motion, no evidence of injury Foot Exam: bilateral foot: non-tender, normal inspection, normal range of motion, no evidence of injury Neuro/Tendon Exam: normal sensation, normal motor functions, normal tendon functions, responds to pain, No motor deficit, No sensory deficit Mental Status Exam: alert, oriented x 3, cooperative Skin Exam: normal color, warm, dry SpO2 Interpretation: normal SpO2: 95 O2 Delivery: Room Air - Course Nursing assessment & vital signs reviewed: Yes - Radiology Exams Knee X-ray Interpretation: Discussed w/ radiologist (QUENTIN per Dr. Zarate) Ordered Tests: Active Orders 24 hr Category Date Time Status Splint STAT Care 01/10/23 16:16 Ordered KNEE (3 VIEWS) Stat Exams 01/10/23 14:27 Completed Medication Summary Generic Name Dose Route Start Last Admin Trade Name Freq PRN Reason Stop Dose Admin Hydrocodone Bitart/Acetaminophen 1 tablet 01/10/23 16:16 Hydrocodone/Acetamin 10-325 Mg Tablet PO 01/10/23 16:17 STAT ONE - Progress Progress Note: 01/10/23 16:23 Nursing note and vital signs reviewed No food or housing insecurities noted Additional history per daughter Pt's pain most likely due to DJD w acute medial collateral ligament strain Norco10 po x1 RLE knee immobilizer per nursing/NVI XR reviewed and shared w pt/family Pt to f/u in [facility] Counseled pt/family regarding: diagnosis, need for follow-up, rad results Medical Desision Making - Risk of complications Low Risk: Low risk of morbidity from additional dx testing or treatment The pt has a mod risk of morbidity or mortality based on: Need for prescription drug management - Departure Departure Disposition: Home Clinical Impression: Strain of right knee Condition: Stable Critical Care Time: No Referrals: MISBAH AUSTIN [Primary Care Provider] - Follow up/PCP as directed ORTHO - NARCISO THOMPSON NP [NON-STAFF PHY W/O PRIVILEGES] - Follow up/PCP as directed Instructions: Knee Sprain (DC) Additional Instructions: Pain meds as needed(Use a stool softener w pain meds) No weight bearing, use walker Follow up w Ortho Clinic M-Fr 8-10 Prescriptions: Hydrocodone/Acetaminophen [Hydrocodone-Acetamin 10-325 mg] 0.5 each PO Q4-6HPRN PRN #8 tablet MDD 4 tabs PRN Reason: Pain
[2023-01-10 17:08] VITALS: BP 141/61; O2SAT 94
== END 2023-01-10 17:22 | disposition home or self-care (01) ==
LOC: ED 13:55
DX: S83.91XA Sprain of unspecified site of right knee, initial encounter (principal); M25.561 Pain in right knee; Z20.828 Contact with and (suspected) exposure to other viral communicable diseases; Z79.899 Other long term (current) drug therapy
CPT/HCPCS: 73562; 99283; L1830; A9270-GY

== ENCOUNTER 2024-02-06 01:48 | Emergency (ER) | payer MEDICARE ==
[2024-02-06 02:02] VITALS: RESP 18; TEMP 96
[2024-02-06] MEDS ORDERED: [UNRECOGNIZED DRUG - OTHER] OP ONE (02:25)
--- NOTE | 2024-02-06 02:32 | ERPHSYRPT ---
- History of Present Illness Time Seen by Provider: 02/06/24 02:00 Source: patient Exam Limitations: no limitations Patient Subjective Stated Complaint: earache x4 days on right side Triage Nursing Assessment: pt ambulated into ER without diff, spouse at bedside. Pt alert and oriented x4. Pt c/o right ear pain x4 days and pain behind the ear into the neck region. Rt ear has quite a bit of wax and is red. No drainage noted. Pt denies any difficulty hearing from the rt ear, pt denies any dizziness. Timing/Duration: day(s) (4) Severity: mild Modifying Factors: Improves With: nothing Associated Symptoms: denies symptoms Allergies/Adverse Reactions: simvastatin Adverse Reaction (Intermediate, Verified 02/06/24 02:10) Muscle Aches Severe shoulder muscle pain metformin Adverse Reaction (Mild, Verified 02/06/24 02:10) Nausea Home Medications: Dexlansoprazole [Dexilant] 60 mg PO DAILY 05/20/12 [History] Amlodipine Besylate 5 mg [Norvasc 5 mg] 5 mg PO DAILY 03/20/15 [History] Metoprolol Succinate 50 mg PO DAILY 01/12/18 [History] Potassium Chloride 8 meq PO DAILY 01/12/18 [History] Ondansetron ODT 4 MG [Zofran Odt 4 mg] 8 mg PO Q6HPRN PRN 02/28/18 [History] Sitagliptin Phosphate [Januvia] 25 mg PO DAILY 02/28/18 [History] Triamterene/Hydrochlorothiazid [Triamterene-Hctz 37.5-25 mg Cp] 1 each PO DAILY 02/28/18 [History] Insulin Glargine,Hum.rec.anlog [Lantus Solostar] 55 unit SQ 0900 06/02/20 [History] Acetaminophen 500 mg [Tylenol Extra Strength 500 mg] 1,000 mg PO Q6H PRN PRN 08/12/20 [History] Albuterol Sulfate [Proair Hfa] 8.5 gm IH Q4H PRN PRN 08/12/20 [History] Fenofibrate Nanocrystallized [Fenofibrate] 145 mg PO DAILY 01/10/23 [History] Hx Tetanus, Diphtheria Vaccination/Date Given: Yes Hx Influenza Vaccination/Date Given: Yes Hx Pneumococcal Vaccination/Date Given: Yes Immunizations Up to Date: Yes Travel Risk - International Travel Have you traveled outside of the country in past 3 weeks: No - Emerging Infectious Disease Are you exhibiting symptoms associated with any current EIDs: No - Review of Systems Eyes: No Symptoms Ears, Nose, & Throat: No Symptoms Respiratory: No Symptoms Cardiac: No Symptoms Abdominal/Gastrointestinal: No Symptoms Genitourinary Symptoms: No Symptoms Musculoskeletal: No Symptoms Skin: No Symptoms Neurological: No Symptoms Psychological: No Symptoms - Past Medical History Pertinent Past Medical History: Yes Neurological History: Peripheral Neuropathy ENT History: No Pertinent History Cardiac History: High Cholesterol, Hypertension Respiratory History: COPD, Sleep Apnea Endocrine Medical History: Diabetes Type II Musculoskeletal History: Arthritis, Rheumatoid Arthritis, Other GI Medical History: GERD, Gallbladder Disease, Polyps, Other History: Renal Disease Psycho-Social History: No Pertinent History Female Reproductive Disorders: No Pertinent History Other Medical History: Hx of nausea. mild COPD. neuropathy. gastric polyp, chronic kidney disease - Past Surgical History Past Surgical History: Yes Neuro Surgical History: No Pertinent History Cardiac: No Pertinent History Respiratory: No Pertinent History Gastrointestinal: Appendectomy, Cholecystectomy Genitourinary: No Pertinent History Musculoskeletal: No Pertinent History Female Surgical History: Dilation & Curettage, Tubal Ligation Other Surgical History: TONSIL. EGD 5 YEARS AGO. COLONOSCOPY. D&C Significant Family History: no pertinent family hx - Social History Smoking Status: Former smoker How long have you smoked: 33 YEARS Exposure to second hand smoke: No Alcohol Use: None Drug Use: none Patient Lives Alone: No - Social Determinants of Health Will the patient participate in the screening: Yes Do you worry about a steady place to live?: No Do you have any problems with any of the following?: No known problems In the past 12 months,have you had to go without utilities?: No Transportation Issues: No Has anyone in your support network made you feel unsafe?: No Have you or anyone in your house had to go without enough: No - Nursing Vital Signs Nursing Vital Signs: Initial Vital Signs Temperature 96.0 F 02/06/24 02:01 Pulse Rate 79 02/06/24 02:01 Respiratory Rate 18 02/06/24 02:01 Blood Pressure 160/74 02/06/24 02:01 O2 Sat by Pulse Oximetry 96 02/06/24 02:01 Pain Scale Pain Intensity 10 - Physical Exam General Appearance: no apparent distress Eye Exam: PERRL/EOMI Ears, Nose, Throat Exam: normal ENT inspection, TM abnormal (R) (right tm is erythematous ), other (patient is tender over the anterior aspect of the pinna and the mandible on palpation) Neck Exam: non-tender, supple, full range of motion Respiratory Exam: normal breath sounds Cardiovascular Exam: regular rate/rhythm Gastrointestinal/Abdomen Exam: soft, normal bowel sounds SpO2: 96 - Progress Progress Note: patient presents to the emergency department complaining of right ear pain with some erythema on examination however she is also tender in the area of the tragus anteriorly towards the mandible she has some pain with opening and closing of her jaw with his normal 02/06/24 02:29 Medical Desision Making - Discussion of managment Reviewed:: Need for additional workup (Patient is refusing labs and CT of the maxillofacial area and CT of the neck he was informed of the need to follow-up with her primary care provider return to the ER if she were to get worse) - Departure Clinical Impression: Right acute otitis media Condition: Good Critical Care Time: No Referrals: MISBAH AUSTIN [Primary Care Provider] - Follow up/PCP as directed Prescriptions: Amox Tr/Potass Clav. 875 mg [Augmentin 875-125 Tablet] 1 each PO BID #16 tablet
[2024-02-06] MEDS ORDERED: TETRACAINE 0.5% STERI-UNIT SOL OP ONE (02:43)
[2024-02-06] MEDS: TETRACAINE 0.5% STERI-UNIT SOL OP STA ×2 (02:45→02:46)
[2024-02-06 02:54] VITALS: BP 139/64; PULSE 69; O2SAT 94
== END 2024-02-06 02:55 | disposition home or self-care (01) ==
LOC: ED 01:48
DX: H66.91 Otitis media, unspecified, right ear (principal); H92.01 Otalgia, right ear; E78.5 Hyperlipidemia, unspecified; I12.9 Hypertensive chronic kidney disease with stage 1 through stage 4 chronic kidney disease, or unspecified chronic kidney disease; E11.22 Type 2 diabetes mellitus with diabetic chronic kidney disease; N18.9 Chronic kidney disease, unspecified; E11.42 Type 2 diabetes mellitus with diabetic polyneuropathy; Z79.84 Long term (current) use of oral hypoglycemic drugs; Z79.4 Long term (current) use of insulin; Z79.899 Other long term (current) drug therapy
CPT/HCPCS: 99281

== ENCOUNTER 2024-02-13 22:13 | Emergency (ER) | payer MEDICARE ==
--- NOTE | 2024-02-13 22:20 | ERPHSYRPT ---
- History of Present Illness Time Seen by Provider: 02/13/24 22:19 Source: patient, family Exam Limitations: no limitations Physician History: This is an obese 78-year-old white female patient of Dr. Salcido who approximately 8 days ago began treatment of her right ear infection with amoxicillin. Patient arrives by private vehicle. Patient states that she completed the treatment and this included amoxicillin oral antibiotic and eardrops. She is still having pain in that right ear. Patient has a history of hypertension and is diabetic. The pain is described as sharp. She has not had a fever. She does no chest pain. She has not short of breath. Patient rec ently is on a tapering dose of steroids. Timing/Duration: gradual onset ENT Location: ear (R) Prearrival Treatment: no prearrival treatment Modifying Factors: Improves With: nothing Associated Symptoms: ear pain (R) Allergies/Adverse Reactions: simvastatin Adverse Reaction (Intermediate, Verified 02/13/24 22:18) Muscle Aches Severe shoulder muscle pain metformin Adverse Reaction (Mild, Verified 02/13/24 22:18) Nausea Home Medications: Dexlansoprazole [Dexilant] 60 mg PO DAILY 05/20/12 [History] Amlodipine Besylate 5 mg [Norvasc 5 mg] 5 mg PO DAILY 03/20/15 [History] Metoprolol Succinate 50 mg PO DAILY 01/12/18 [History] Potassium Chloride 8 meq PO DAILY 01/12/18 [History] Ondansetron ODT 4 MG [Zofran Odt 4 mg] 8 mg PO Q6HPRN PRN 02/28/18 [History] Sitagliptin Phosphate [Januvia] 25 mg PO DAILY 02/28/18 [History] Triamterene/Hydrochlorothiazid [Triamterene-Hctz 37.5-25 mg Cp] 1 each PO DAILY 02/28/18 [History] Insulin Glargine,Hum.rec.anlog [Lantus Solostar] 55 unit SQ 0900 06/02/20 [Hist ory] Acetaminophen 500 mg [Tylenol Extra Strength 500 mg] 1,000 mg PO Q6H PRN PRN 08/12/20 [History] Albuterol Sulfate [Proair Hfa] 8.5 gm IH Q4H PRN PRN 08/12/20 [History] Fenofibrate Nanocrystallized [Fenofibrate] 145 mg PO DAILY 01/10/23 [History] Hx Tetanus, Diphtheria Vaccination/Date Given: Yes Hx Influenza Vaccination/Date Given: Yes Hx Pneumococcal Vaccination/Date Given: Yes Travel Risk - Emerging Infectious Disease Are you exhibiting symptoms associated with any current EIDs: No - Review of Systems Constitutional: No Symptoms Eyes: No Symptoms Ears, Nose, & Throat: Ear Pain (right) Respiratory: No Symptoms Cardiac: No Symptoms Abdominal/Gastrointestinal: No Symptoms Genitourinary Symptoms: No Symptoms Musculoskeletal: No Symptoms Skin: No Symptoms Neurological: No Symptoms Psychological: No Symptoms Endocrine: No Symptoms Hematologic/Lymphatic: No Symptoms Immunological/Allergic: No Symptoms All Other Systems: Reviewed and Negative - Past Medical History Pertinent Past Medical History: Yes Neurological History: Peripheral Neuropathy ENT History: No Pertinent History Cardiac History: High Cholesterol, Hypertension Respiratory History: COPD, Sleep Apnea Endocrine Medical History: Diabetes Type II Musculoskeletal History: Arthritis, Rheumatoid Arthritis, Other GI Medical History: GERD, Gallbladder Disease, Polyps, Other History: Renal Disease Psycho-Social History: No Pertinent History Female Reproductive Disorders: No Pertinent History Other Medical History: Hx of nausea. mild COPD. neuropathy. gastric polyp, ch ronic kidney disease - Past Surgical History Past Surgical History: Yes Neuro Surgical History: No Pertinent History Cardiac: No Pertinent History Respiratory: No Pertinent History Gastrointestinal: Appendectomy, Cholecystectomy Genitourinary: No Pertinent History Musculoskeletal: No Pertinent History Female Surgical History: Dilation & Curettage, Tubal Ligation Other Surgical History: TONSIL. EGD 5 YEARS AGO. COLONOSCOPY. D&C Significant Family History: no pertinent family hx - Social History Smoking Status: Former smoker How long have you smoked: 33 YEARS Exposure to second hand smoke: No Alcohol Use: None Drug Use: none Patient Lives Alone: No - Social Determinants of Health Will the patient participate in the screening: Yes Do you worry about a steady place to live?: No In the past 12 months,have you had to go without utilities?: No Transportation Issues: No Has anyone in your support network made you feel unsafe?: No Have you or anyone in your house had to go without enough: No - Nursing Vital Signs Nursing Vital Signs: Initial Vital Signs Temperature 95.6 F 02/13/24 22:14 Pulse Rate 73 06/12/24 22:14 Respiratory Rate 18 02/13/24 22:14 Blood Pressure 177/96 02/13/24 22:14 O2 Sat by Pulse Oximetry 96 02/13/24 22:14 Pain Scale Pain Intensity 10 - Physical Exam General Appearance: no apparent distress, alert, anxiety, obese Eye Exam: bilateral eye: normal inspection, PERRL, EOMI Ear Exam: right ear: tenderness, TM red, left ear: canal normal, TM normal, bleeding, bilateral ear: auricle normal Nasal Exam: normal inspection Throat Exam: normal, pharynx normal, No dental tenderness, No excessive drooling Neck Exam: normal inspection, non-tender, supple, full range of motion Cardiovascular/Respiratory Exam: chest non-tender, no respiratory distress Abdominal Exam: non-tender Neurologic Exam: alert, oriented x 3, cooperative, natural resources engineer II-XII nml as tested, normal mood/affect, nml cerebellar function, nml station & gait, sensation nml Skin Exam: normal color, warm, dry SpO2 Interpretation: normal O2 Delivery: Room Air - Course Nursing assessment & vital signs reviewed: Yes Ordered Tests: Medication Summary Discontinued Medications Generic Name Dose Route Start Last Admin Trade Name Masonq PRN Reason Stop Dose Admin Hydrocodone Bitart/Acetaminophen 1 tab 02/13/24 22:47 Hydrocodone/Apap 5/325 1 Tab Tablet PO 02/13/24 22:48 STAT ONE Hydrocodone Bitart/Acetaminophen 2 tab 02/13/24 22:48 Hydrocodone/Apap 5/325 1 Tab Tablet PO 02/13/24 22:49 SENT HOME W/ PATIENT ONE Ceftriaxone Sodium 1,000 mg 02/13/24 22:47 Ceftriaxone Sodium 1000 Mg Inj Vial IM 02/13/24 22:48 STAT ONE - Progress Progress: unchanged Progress Note: 02/13/24 22:55 My medical decision making and the assignment of low complexity to this patient's medical issue is based on review of the patient's past medical history, review of the patient's medication list, review patient drug allergy list, history present illness and physical findings on examination. No laboratory radiographic studies are necessary in this patient's workup. I will not provide the patient with additional steroids as she received an injection of long-acting steroids on the prior to this evaluation and is in the middle of a tapering dose of steroids. Counseled pt/family regarding: diagnosis, need for follow-up Medical Desision Making - Independent Historian Additional History obtained from: Spouse - Diagnostic Testing Diagnostic test were ordered, analyzed, and reviewed by me: No - Risk of complications The pt has a mod risk of morbidity or mortality based on: Need for prescription drug management - Departure Departure Disposition: Home Clinical Impression: Right otitis media Condition: Stable Critical Care Time: No Referrals: MISBAH SALCIDO [Primary Care Provider] - Follow up/PCP as directed Additional Instructions: Drink plenty of fluids. If there are no contraindications you may add ibuprofen or Aleve to your pain regimen. Take your antibiotics as prescribed. Call your primary care provider tomorrow, 02/14/2024 to make arrangements for further evaluation and management. Prescriptions: Azithromycin 250 mg [Zithromax 250 MG TABLET] 250 mg PO ZPACK #6 tablet
[2024-02-13 22:29] VITALS: RESP 18; TEMP 95.6
[2024-02-13] MEDS ORDERED: NORCO 5/325 MG ONE (22:59)
[2024-02-13] MEDS ORDERED: Rocephin 1000 MG INJ ONE (22:59)
[2024-02-13] MEDS: NORCO 5/325 MG PO ONE ×2 (23:00)
[2024-02-13] MEDS: Rocephin 1000 MG INJ IM ONE (23:00)
[2024-02-13 23:17] VITALS: BP 146/90; PULSE 63; O2SAT 97
== END 2024-02-13 23:27 | disposition home or self-care (01) ==
LOC: ED 22:13
DX: H66.91 Otitis media, unspecified, right ear (principal); H92.01 Otalgia, right ear; I12.9 Hypertensive chronic kidney disease with stage 1 through stage 4 chronic kidney disease, or unspecified chronic kidney disease; E11.22 Type 2 diabetes mellitus with diabetic chronic kidney disease; N18.9 Chronic kidney disease, unspecified; E11.42 Type 2 diabetes mellitus with diabetic polyneuropathy; E78.5 Hyperlipidemia, unspecified; Z79.84 Long term (current) use of oral hypoglycemic drugs; Z79.4 Long term (current) use of insulin; Z79.899 Other long term (current) drug therapy
CPT/HCPCS: 96372; 99283; J0696; A9270-GY

== ENCOUNTER 2024-11-23 11:34 | Emergency (ER) | payer MEDICARE ==
[2024-11-23 12:08] VITALS: TEMP 98.4
--- NOTE | 2024-11-23 13:01 | ERPHSYRPT ---
- History of Present Illness Time Seen by Provider: 11/23/24 12:55 Historian: patient Exam Limitations: no limitations Patient Subjective Stated Complaint: Abdominal pain Triage Nursing Assessment: [id number] Physician History: 79yo f presents via private vehicle for epigastric pain that began last night while in bed. Pt reports she was able to sleep but woke up w/ the pain. Pt reports the pain is burning in nature, endorses some mild nausea but denies any vomiting or diarrhea. Pt denies any cp or sob, denies any significant cardiac hx. Pt does endorse significant hx of GERD and delayed gastric transit. Pt denies any fevers or recent sick contacts. Timing/Duration: yesterday Activities at Onset: none Quality: aching, burning Abdominal Pain Onset Location: epigastric Pain Radiation: no radiation Severity of Pain-Max: moderate Severity of Pain-Current: mild Modifying Factors: Improves With: analgesics Associated Symptoms: nausea, No back, No chest pain, No diaphoresis, No diarrhea, No shortness of breath, No vomiting Previous symptoms: same symptoms as today Allergies/Adverse Reactions: simvastatin Adverse Reaction (Intermediate, Verified 11/23/24 11:57) Muscle Aches Severe shoulder muscle pain metformin Adverse Reaction (Mild, Verified 11/23/24 11:57) Nausea Home Medications: Dexlansoprazole [Dexilant] 60 mg PO DAILY 05/20/12 [History] Amlodipine Besylate 5 mg [Norvasc 5 mg] 5 mg PO DAILY 03/20/15 [History] Metoprolol Succinate 50 mg PO DAILY 01/12/18 [History] Potassium Chloride 8 meq PO DAILY 01/12/18 [History] Ondansetron ODT 4 MG [Zofran Odt 4 mg] 8 mg PO Q6HPRN PRN 02/28/18 [History] Sitagliptin Phosphate [Januvia] 25 mg PO DAILY 02/28/18 [History] Triamterene/Hydrochlorothiazid [Triamterene-Hctz 37.5-25 mg Cp] 1 each PO DAILY 02/28/18 [History] Insulin Glargine,Hum.rec.anlog [Lantus Solostar] 55 unit SQ 0900 06/02/20 [History] Acetaminophen 500 mg [Tylenol Extra Strength 500 mg] 1,000 mg PO Q6H PRN PRN 08/12/20 [History] Albuterol Sulfate [Proair Hfa] 8.5 gm IH Q4H PRN PRN 08/12/20 [History] Fenofibrate Nanocrystallized [Fenofibrate] 145 mg PO DAILY 01/10/23 [History] Hx Tetanus, Diphtheria Vaccination/Date Given: Yes Hx Influenza Vaccination/Date Given: Yes Hx Pneumococcal Vaccination/Date Given: Yes Immunizations Up to Date: Yes Travel Risk - International Travel Have you traveled outside of the country in past 3 weeks: No - Emerging Infectious Disease Are you exhibiting symptoms associated with any current EIDs: No - Review of Systems Constitutional: No Symptoms Respiratory: No Symptoms Cardiac: No Symptoms Abdominal/Gastrointestinal: Abdominal Pain, Nausea, No Vomiting, No Diarrhea, No Constipation - Past Medical History Pertinent Past Medical History: Yes Neurological History: Peripheral Neuropathy ENT History: No Pertinent History Cardiac History: High Cholesterol, Hypertension Respiratory History: COPD, Sleep Apnea Endocrine Medical History: Diabetes Type II Musculoskeletal History: Arthritis, Rheumatoid Arthritis, Other GI Medical History: GERD, Gallbladder Disease, Polyps, Other History: Renal Disease Psycho-Social History: No Pertinent History Female Reproductive Disorders: No Pertinent History Other Medical History: Hx of nausea. mild COPD. neuropathy. gastric polyp, chronic kidney disease - Past Surgical History Past Surgical History: Yes Neuro Surgical History: No Pertinent History Cardiac: No Pertinent History Respiratory: No Pertinent History Gastrointestinal: Appendectomy, Cholecystectomy Genitourinary: No Pertinent History Musculoskeletal: No Pertinent History Female Surgical History: Dilation & Curettage, Tubal Ligation Other Surgical History: TONSIL. EGD 5 YEARS AGO. COLONOSCOPY. D&C Significant Family History: no pertinent family hx - Social History Smoking Status: Former smoker How long have you smoked: 33 YEARS Exposure to second hand smoke: No Drug Use: none - Social Determinants of Health Will the patient participate in the screening: Yes Do you worry about a steady place to live?: No Do you have any problems with any of the following?: No known problems In the past 12 months,have you had to go without utilities?: No Transportation Issues: No Has anyone in your support network made you feel unsafe?: No Have you or anyone in your house had to go w/o enough food: No - Nursing Vital Signs Nursing Vital Signs: Initial Vital Signs Pulse Rate 66 11/23/24 12:00 Respiratory Rate 21 11/23/24 12:00 Blood Pressure 114/91 11/23/24 12:00 O2 Sat by Pulse Oximetry 94 L 11/23/24 12:00 Pain Scale Pain Intensity 8 - Physical Exam General Appearance: no apparent distress Respiratory Exam: normal breath sounds, lungs clear, airway intact, No chest tenderness, No respiratory distress Cardiovascular Exam: regular rate/rhythm, normal heart sounds, edema (+1 b/l LE edema) Gastrointestinal/Abdomen Exam: soft, normal bowel sounds, tenderness (minimal epigastric tenderness), No distention, No guarding, No rebound Neurologic Exam: alert, oriented x 3, cooperative SpO2 Interpretation: normal SpO2: 94 O2 Delivery: Room Air Ordered Tests: Active Orders 24 hr Category Date Time Status EKG-ER Only STAT Care 11/23/24 12:58 Active IV Insertion STAT Care 11/23/24 12:58 Active ABDOMEN AND PELVIS W/0 CONTRAS [CT] Stat Exams 11/23/24 12:59 Completed CHEST 1 VIEW (PORTABLE) Stat Exams 11/23/24 12:59 Taken AMYLASE Stat Lab 11/23/24 14:00 Completed CBC W DIFF Stat Lab 11/23/24 14:00 Completed CMP Stat Lab 11/23/24 14:00 Completed LIPASE Stat Lab 11/23/24 14:00 Completed TROPONIN Q4H Lab 11/23/24 14:00 Completed TROPONIN Q4H Lab 11/23/24 16:00 Completed TROPONIN Q4H Lab 11/23/24 21:00 Ordered UA W/RFX UR CULTURE Stat Lab 11/23/24 12:58 Ordered Medication Summary Discontinued Medications Generic Name Dose Route Start Last Admin Trade Name Russell PRN Reason Stop Dose Admin Famotidine 20 mg 11/23/24 12:58 11/23/24 14:08 Famotidine 20 Mg/1 Vial IV 11/23/24 12:59 20 mg STAT ONE Administration Famotidine Confirm 11/23/24 14:06 Famotidine 20 Mg/1 Vial Administered 11/23/24 14:07 Dose 20 mg IV .STK-MED ONE Ondansetron HCl 4 mg 11/23/24 12:58 11/23/24 14:08 Ondansetron Hcl 4 Mg/2 Ml Vial IV 11/23/24 12:59 4 mg STAT ONE Administration Ondansetron HCl Confirm 11/23/24 14:05 Ondansetron Hcl 4 Mg/2 Ml Vial Administered 11/23/24 14:06 Dose 4 mg .ROUTE .STK-MED ONE Pantoprazole Sodium 40 mg 11/23/24 16:30 11/23/24 17:17 Pantoprazole 40 Mg Vial IV 11/23/24 16:31 40 mg STAT ONE Administration Pantoprazole Sodium Confirm 11/23/24 17:14 Pantoprazole 40 Mg Vial Administered 11/23/24 17:15 Dose 40 mg IV .STK-MED ONE Lab/Rad Data: Laboratory Result Diagrams 11/23/24 14:00 11/23/24 14:00 Laboratory Results 11/23/24 11/23/24 11/23/24 Range/Units 16:00 14:00 14:00 WBC (3.98-10.04) x10^3/uL RBC (3.93-5.22) x10^6/uL Hgb (11.2-15.7) g/dL Hct (34.1-44.9) % MCV (79.4-94.8) fL MCH (25.6-32.2) pg MCHC (32.2-35.5) g/dL RDW (11.7-14.4) % Plt Count (182-369) x10^3/uL MPV (9.4-12.3) fL Gran % (34.0-71.1) % Immature Gran % (Auto) (0.001-0.429) % Nucleat RBC Rel Count (0.00-0.2) % Eos # (Auto) (0.04-0.36) x10^3/uL Immature Gran # (Auto) (0.001-0.031) x10^3u/L Absolute Lymphs (auto) (1.18-3.74) x10^3/uL Absolute Monos (auto) (0.24-0.86) x10^3/uL Absolute Nucleated RBC (0.00-0.012) x10^3u/L Lymphocytes % (19.3-51.7) % Monocytes % (4.7-12.5) % Eosinophils % (0.7-5.8) % Basophils % (0.1-1.2) % Absolute Granulocytes (1.56-6.13) x10^3/uL Basophils # (0.01-0.08) x10^3/uL Sodium (135-145) mmol/L Potassium (3.5-5.1) mmol/L Chloride (98-107) mmol/L Carbon Dioxide (22-30) mmol/L Anion Gap (5-15) MEQ/L BUN (7-17) mg/dL Creatinine (0.52-1.04) mg/dL Estimated GFR ML/MIN Glucose (74-106) mg/dL Calcium (8.4-10.2) mg/dL Total Bilirubin (0.2-1.3) mg/dL AST (14-36) U/L ALT (0-35) U/L Alkaline Phosphatase (38-126) U/L Troponin I < 0.012 < 0.012 (0.000-0.033) ng/mL Serum Total Protein (6.3-8.2) g/dL Albumin (3.5-5.0) g/dL Amylase 60 (30-110) U/L Lipase (23-300) U/L 11/23/24 11/23/24 Range/Units 14:00 14:00 WBC 6.2 (3.98-10.04) x10^3/uL RBC 4.51 (3.93-5.22) x10^6/uL Hgb 13.8 (11.2-15.7) g/dL Hct 41.3 (34.1-44.9) % MCV 91.6 (79.4-94.8) fL MCH 30.6 (25.6-32.2) pg MCHC 33.4 (32.2-35.5) g/dL RDW 13.8 (11.7-14.4) % Plt Count 237 (182-369) x10^3/uL MPV 10.4 (9.4-12.3) fL Gran % 74.4 H (34.0-71.1) % Immature Gran % (Auto) 0.2 (0.001-0.429) % Nucleat RBC Rel Count 0.0 (0.00-0.2) % Eos # (Auto) 0.04 (0.04-0.36) x10^3/uL Immature Gran # (Auto) 0.01 (0.001-0.031) x10^3u/L Absolute Lymphs (auto) 1.06 L (1.18-3.74) x10^3/uL Absolute Monos (auto) 0.45 (0.24-0.86) x10^3/uL Absolute Nucleated RBC 0.00 (0.00-0.012) x10^3u/L Lymphocytes % 17.1 L (19.3-51.7) % Monocytes % 7.2 (4.7-12.5) % Eosinophils % 0.6 L (0.7-5.8) % Basophils % 0.5 (0.1-1.2) % Absolute Granulocytes 4.62 (1.56-6.13) x10^3/uL Basophils # 0.03 (0.01-0.08) x10^3/uL Sodium 140 (135-145) mmol/L Potassium 3.7 (3.5-5.1) mmol/L Chloride 101 (98-107) mmol/L Carbon Dioxide 27 (22-30) mmol/L Anion Gap 15.9 H (5-15) MEQ/L BUN 24 H (7-17) mg/dL Creatinine 1.35 H (0.52-1.04) mg/dL Estimated GFR 40.2 ML/MIN Glucose 163 H (74-106) mg/dL Calcium 10.1 (8.4-10.2) mg/dL Total Bilirubin 0.80 (0.2-1.3) mg/dL AST 49 H (14-36) U/L ALT 31 (0-35) U/L Alkaline Phosphatase 70 (38-126) U/L Troponin I (0.000-0.033) ng/mL Serum Total Protein 6.9 (6.3-8.2) g/dL Albumin 4.3 (3.5-5.0) g/dL Amylase (30-110) U/L Lipase 306 H (23-300) U/L - Progress Progress: improved Progress Note: 11/23/24 18:00 lipase slightly elevated, amylase wnl, labs otherwise largely unremarkable CT abd/pel showed 1. Bilateral renal cysts. 2. Splenic calcified granulomas. 3. Sigmoid non complicated diverticulosis. 4. No interval changes. pt sx resolved w/ additional dose of PPI and famotidine - sx likely 2/2 GERD vs slow gastric transit plan to discharge home w/ PCP follow up this week - Omari recommend adding 20mg pepcid to daily antacid regimen recommend avoiding spicy foods, acidic foods return to ED if: develop bloody vomiting, develop worsening pain, develop bloody stools, become unable to tolerate oral intake Counseled pt/family regarding: lab results, diagnosis, need for follow-up, rad results Medical Desision Making - Diagnostic Testing Diagnostic test were ordered, analyzed, and reviewed by me: Yes Radiological Interpretation: Interpreted by me, Reviewed by me, Teleradiologist Report - Risk of complications Minimal Risk: Minimal risk of morbidity - Departure Departure Disposition: Home Clinical Impression: Epigastric pain GERD (gastroesophageal reflux disease) Qualifiers: Esophagitis presence: esophagitis presence not specified Qualified Code(s): K21.9 - Gastro-esophageal reflux disease without esophagitis Condition: Stable Critical Care Time: No Referrals: MISBAH AUSTIN [Primary Care Provider] - Follow up/PCP as directed Additional Instructions: plan to discharge home w/ PCP follow up this week - mOari recommend adding 20mg pepcid to daily antacid regimen recommend avoiding spicy foods, acidic foods return to ED if: develop bloody vomiting, develop worsening pain, develop bloody stools, become unable to tolerate oral intake
[2024-11-23 14:05] LABS: Absolute Neutrophil Ct (ANC) 4.62 x10^3/uL (1.56-6.13); BASOPHIL % 0.5 % (0.1-1.2); Basophil (Absolute #) 0.03 x10^3/uL (0.01-0.08); Eosinophil % 0.6 % (0.7-5.8); Eosinophil (Absolute #) 0.04 x10^3/uL (0.04-0.36); Hematocrit 41.3 % (34.1-44.9); Hemoglobin 13.8 g/dL (11.2-15.7); IMMATURE GRAN # 0.01 x10^3u/L (0.001-0.031); IMMATURE GRAN % 0.2 % (0.001-0.429); Lymphocyte (Absolute #) 1.06 x10^3/uL (1.18-3.74); Lymphocytes % 17.1 % (19.3-51.7); Mean Cell Volume 91.6 fL (79.4-94.8); Mean Corpuscular Hemoglobin 30.6 pg (25.6-32.2); Mean Corpuscular Hgb Concent. 33.4 g/dL (32.2-35.5); Mean Platelet Volume 10.4 fL (9.4-12.3); Monocyte (Absolute #) 0.45 x10^3/uL (0.24-0.86); Monocytes % 7.2 % (4.7-12.5); Neutrophil % 74.4 % (34.0-71.1); Platelet Count 237 x10^3/uL (182-369); Red Blood Count 4.51 x10^6/uL (3.93-5.22); Red Cell Distribution Width 13.8 % (11.7-14.4); White Blood Count 6.2 x10^3/uL (3.98-10.04)
[2024-11-23] MEDS ORDERED: Zofran 4 MG/2 ML VIAL ONE (14:05)
[2024-11-23] MEDS ORDERED: Pepcid 20 MG VIAL IV ONE (14:06)
[2024-11-23] MEDS: Pepcid 20 MG VIAL IV ONE (14:08)
[2024-11-23] MEDS: Zofran 4 MG/2 ML VIAL IV ONE (14:08)
[2024-11-23 14:23] LABS: ALBUMIN 4.3 g/dL (3.5-5.0); ANION GAP 15.9 MEQ/L (5-15); BILIRUBIN,TOTAL 0.8 mg/dL (0.2-1.3); Calcium 10.1 mg/dL (8.4-10.2); Creatinine 1 1.35 mg/dL (0.52-1.04); EST GLOMERULAR FILTRATION RATE 40.2 ML/MIN; Potassium 3.7 mmol/L (3.5-5.1); Total Protein 6.9 g/dL (6.3-8.2)
--- NOTE | 2024-11-23 14:44 | XRAY ---
CLINICAL HISTORY: epigastric pain COMPARISON: Comparison is made with 02/09/2022. TECHNIQUE: CT of the abdomen and pelvis was performed, with the following protocol: axial images, and reconstructed coronal and sagittal images. No intravenous contrast was administered. One of the following dose reduction techniques was utilized for this exam: Automated exposure control, adjustment of the mA and/or kV according to patient size, and use of iterative reconstruction. FINDINGS: Abdomen: Liver: Normal in size, shape, and density. No focal lesions, cysts, or masses were identified. Gallbladder and Biliary System: Surgically removed with clear operative bed. Pancreas: Pancreatic head, body, and tail are visualized and appear normal in size and density. No pancreatic masses or calcifications were noted. Spleen: Normal in size, shape, and density. Multiple small foci of calcifications likely old granuloma. Kidneys and Adrenal Glands: Both kidneys are normal in size, shape, and position. Cortical thickness is within normal limits. No renal calculi or hydronephrosis. Adrenal glands are unremarkable. bilateral cortical renal cyst, larges right lower polar and measures about 52 x 50 mm. Appendix: Surgically removed. Pelvis: Urinary Bladder: Normal in contour and wall thickness. No intraluminal lesions. Uterus: Normal in size and contour for age . No masses or abnormal thickening. Adenxa: no gross abnormalities noted. Peritoneal and Retroperitoneal Structures: No free fluid or abnormal fluid collections were identified within the abdomen or pelvis. No lymphadenopathy was noted. Bowel: The visualized bowel loops are normal in caliber and appearance. No evidence of bowel obstruction or wall thickening. Still noted mutliple sigmoid non complicated diverticulitis. Bones and Soft Tissues: Diffuse osteopenia. Diffuse spondylotic changes of the scanned spine most evident at L4-5. Stable Abdominal aortic calcifications with no evidence of AAA.Stable. Lower chest cuts still show right basal calcified nodules of old granuloma. Stable. IMPRESSION: 1. Bilateral renal cysts. 2. Splenic calcified granulomas. 3. Sigmoid non complicated diverticulosis. 4. No interval changes. Electronically Signed by: John Maharaj MD. (11/23/2024 14:40:10 EDT)
[2024-11-23] MEDS ORDERED: PROTONIX 40 MG IV IV ONE (17:14)
[2024-11-23] MEDS: PROTONIX 40 MG IV IV ONE (17:17)
[2024-11-23 18:55] VITALS: BP 144/74; PULSE 69; RESP 21; O2SAT 91
--- NOTE | 2024-11-23 19:57 | XRAY ---
Indication: Epigastric pain. Comparison: January 19, 2022. Portable chest again hyperinflated and clear. Heart not enlarged again with left Port-A-Cath. Bony thorax intact again with osteopenia and degenerative changes. No new/acute findings.
== END 2024-11-23 18:57 | disposition home or self-care (01) ==
LOC: ED 11:34
DX: K21.9 Gastro-esophageal reflux disease without esophagitis (principal); R10.13 Epigastric pain; E78.5 Hyperlipidemia, unspecified; E11.42 Type 2 diabetes mellitus with diabetic polyneuropathy; I12.9 Hypertensive chronic kidney disease with stage 1 through stage 4 chronic kidney disease, or unspecified chronic kidney disease; E11.22 Type 2 diabetes mellitus with diabetic chronic kidney disease; N18.9 Chronic kidney disease, unspecified; Z79.84 Long term (current) use of oral hypoglycemic drugs; Z79.4 Long term (current) use of insulin; Z79.899 Other long term (current) drug therapy
CPT/HCPCS: 36415; 71045; 74176; 80053; 82150; 83690; 84484; 85025; 93005; 96374; 96375; 99284; 99285; J1642; J2405